=== PATIENT | female | born 1940 | race Caucasian/White ===

== ENCOUNTER 2017-05-07 18:27 | Emergency (ER) | payer OTHER, MEDICAID ==
[~2017-05-07] VITALS: Ht 160 cm; Wt 56.7 kg
[2017-05-07 18:30] VITALS: BP_SYST 187
[2017-05-07] MEDS ORDERED: NACL 0.9% 1,000 ML IV SCH (18:30)
--- NOTE | 2017-05-07 18:37 | NUR ---
Placed in room 04. Placed on court monitor, blood pressure machine and pulse oximeter. To gown for exam. Side rails up.
--- NOTE | 2017-05-07 18:45 | NUR ---
Note dannielle in ED - 05/07/17 at 1857 by SDEDCJM Patient was sent from for hyperglycemia, BS greater than 600 at . Patient reports that she has reversed her DM through and diet and exercise program and no longer has the disease. Per the daughter this belief has lead her to stop all compliance with DM diet and she is eating candy frequently at the commisary. Patient is concerned that she was sent in so that we can amputate her right leg, as she feels that she was not fully involved in the decision to amputate her left leg. Patient has a 0.5cm x 0.5cm abrasion to right heel which is scabbed over with no periwound erythema, and a 1cm x 1cm abrasion to left stump which is scabbed over with no periwound erythema. Patient is pleasantly confused, signing at times, however I am not able to effectively perform education with her.
--- NOTE | 2017-05-07 18:50 | NUR ---
Patient was sent from [facility] for hyperglycemia, BS greater than 600 at [facility]. Patient reports that she has reversed her DM through and diet and exercise program and no longer has the disease. Per the daughter this belief has lead her to stop all compliance with DM diet and she is eating candy frequently at the [facility] commisary. Patient is concerned that she was sent in so that we can amputate her right leg, as she feels that she was not fully involved in the decision to amputate her left leg. Patient has a 0.5cm x 0.5cm abrasion to right heel which is scabbed over with no periwound erythema, and a 1cm x 1cm abrasion to left stump which is scabbed over with no periwound erythema. Patient is pleasantly confused, signing at times, however I am not able to effectively perform education with her.
[2017-05-07 18:54] LABS: MEAN CORPUSCULAR HGB CONC 33 % (32-36); RED BLOOD CELL COUNT(AUTO) 4.46 MIL/uL (4.2-6.2)
[2017-05-07 19:08] LABS: ANION GAP 7 (5-15); BASOPHILS % (AUTO) 0.8 % (0.0-2.0); CALCIUM 9.6 mg/dL (8.4-11.0); CHLORIDE 95 mmol/L (98-107); CREATININE 1.48 mg/dL (0.55-1.30); EOSINOPHILS # (AUTO) 0.1 K/uL (0.0-0.4); EOSINOPHILS % (AUTO) 2.1 % (0.0-4.0); HEMOGLOBIN 13.4 g/dL (12.0-16.0); LYMPHOCYTES # (AUTO) 1.3 K/uL (1.0-5.5); MEAN CORPUSCULAR HEMOGLOBIN 30 pg (27-31); MEAN CORPUSCULAR VOLUME 92 fL (79.0-98.0); MONOCYTES # (AUTO) 0.3 K/uL (0.0-1.0); MONOCYTES % (AUTO) 5.6 % (1.7-9.3); NEUTROPHILS # (AUTO) 3.8 K/uL (1.8-7.7); NEUTROPHILS % (AUTO) 68.5 % (40.0-70.0); PLATELET COUNT (AUTO) 228 K/uL (130-430); POTASSIUM 4.3 mmol/L (3.5-5.1); RED CELL DISTRIBUTION WIDTH 11.9 % (9.0-15.0); SODIUM SERUM 130 mmol/L (136-145); UREA NITROGEN, BLOOD 34 mg/dL (8-21); WHITE BLOOD COUNT (AUTO) 5.4 K/uL (4.8-10.8)
[2017-05-07 19:09] LABS: ALANINE AMINOTRANSFERASE 22 U/L (12-78); ALBUMIN 3.7 g/dL (3.4-4.8); ASPARTATE AMINOTRANSFERASE 12 U/L (10-37); INR 0.9 (0.8-1.2); PROTHROMBIN TIME 9.7 SECS (9.5-12.5); TOTAL BILIRUBIN 0.3 mg/dL (0.0-1.0)
[2017-05-07 19:15] LABS: GLUCOSE 664 mg/dL (70-99)
--- NOTE | 2017-05-07 19:15 | NUR ---
Received report from Krystian RUBIN.
--- NOTE | 2017-05-07 19:17 | NUR ---
Daughter at bedside and working on providing list of medication list for patient.
--- NOTE | 2017-05-07 19:18 | NUR ---
Assisted patient onto bedpan for urine specimen. Patient refused straight cath.
[2017-05-07 19:50] LABS: BILIRUBIN,URINE NEGATIVE (NEGATIVE); BLOOD, URINE 2+ (NEGATIVE); CLARITY/URINE CLOUDY (CLEAR); COLOR,URINE YELLOW (YELLOW); GLUCOSE,URINE 3+ (NEGATIVE); KETONES,URINE NEGATIVE (NEGATIVE); LEUKOCYTE ESTERASE ,URINE TRACE (NEGATIVE); NITRITE, URINE NEGATIVE (NEGATIVE); PH,URINE 5.5 (5.0-8.0); PROTEIN URINE 2+ (NEGATIVE); UROBILINOGEN,URINE 0.2 (0.2-1.0)
[2017-05-07] MEDS ORDERED: NACL 0.9% 1,000 ML IV ONE (19:56)
[2017-05-07] MEDS ORDERED: INSULIN REGULAR, HUMAN 10 UNITS/0.1 ML INJ IVP ONE (20:00)
[2017-05-07 20:23] LABS: BACTERIA,URINE MANY /HPF (None Seen); MUCUS,URINE None Seen /LPF (None Seen); WBC,URINE 50-80 /HPF (0-3); YEAST,URINE Many /HPF (None Seen)
--- NOTE | 2017-05-07 20:30 | NUR ---
No adverse reactions noted after medication administration. Will continue to monitor.
--- NOTE | 2017-05-07 21:00 | NUR ---
BS 281, after 18 units Regular insulin administered. MD Lopez made aware.
[2017-05-07 22:35] VITALS: BP_SYST 138
--- NOTE | 2017-05-07 22:35 | NUR ---
Patient given written and verbal discharge instructions and verbalizes understanding. ER MD discussed with patient the results and treatment provided. Patient in stable condition. ID arm band removed. IV catheter removed intact and dressing applied, no active bleeding. Rx of Levaquin given. Patient educated on pain management and to follow up with PMD. Pain Scale 0/10. Opportunity for questions provided and answered.
== END 2017-05-07 22:35 | disposition home or self-care (01) ==
LOC: SED 18:27
DX: E11.65 Type 2 diabetes mellitus with hyperglycemia (principal); N39.0 Urinary tract infection, site not specified; R79.1 Abnormal coagulation profile; Z89.512 Acquired absence of left leg below knee
CPT/HCPCS: 36415; 36600; 71010; 80053; 81000; 82803; 82962; 83605; 83880; 84484; 85025; 85610; 85730; 87040; 87086; 87186; 93005; 96361; 96374; 99285; J7030; J1815

== ENCOUNTER 2017-05-20 16:18 | Emergency (ER) | payer OTHER, MEDICAID ==
[~2017-05-20] VITALS: Ht 167.6 cm; Wt 54.4 kg
[2017-05-20 16:23] VITALS: BP_SYST 166
[2017-05-20] MEDS ORDERED: NACL 0.9% 1,000 ML IV ONE (17:15)
[2017-05-20 17:35] LABS: BASOPHILS % (AUTO) 0.8 % (0.0-2.0); EOSINOPHILS # (AUTO) 0.1 K/uL (0.0-0.4); EOSINOPHILS % (AUTO) 2.4 % (0.0-4.0); HEMATOCRIT 43.8 % (36-48); LYMPHOCYTES # (AUTO) 1.4 K/uL (1.0-5.5); LYMPHOCYTES % (AUTO) 23.7 % (20.5-51.5); MEAN CORPUSCULAR HEMOGLOBIN 30 pg (27-31); MEAN CORPUSCULAR HGB CONC 32 % (32-36); MEAN CORPUSCULAR VOLUME 92 fL (79.0-98.0); MONOCYTES # (AUTO) 0.4 K/uL (0.0-1.0); MONOCYTES % (AUTO) 6.6 % (1.7-9.3); NEUTROPHILS # (AUTO) 3.9 K/uL (1.8-7.7); NEUTROPHILS % (AUTO) 66.5 % (40.0-70.0); PLATELET COUNT (AUTO) 240 K/uL (130-430); RED BLOOD CELL COUNT(AUTO) 4.74 MIL/uL (4.2-6.2); RED CELL DISTRIBUTION WIDTH 11.9 % (9.0-15.0); WHITE BLOOD COUNT (AUTO) 5.8 K/uL (4.8-10.8)
[2017-05-20 18:01] LABS: ANION GAP 7 (5-15); CALCIUM 9.6 mg/dL (8.4-11.0); CHLORIDE 92 mmol/L (98-107); CREATININE 1.26 mg/dL (0.55-1.30); POTASSIUM 4.1 mmol/L (3.5-5.1); SODIUM SERUM 128 mmol/L (136-145); UREA NITROGEN, BLOOD 32 mg/dL (8-21)
[2017-05-20 18:06] LABS: GLUCOSE 464 mg/dL (70-99)
[2017-05-20] MEDS ORDERED: INSULIN REGULAR, HUMAN 10 UNITS/0.1 ML INJ IVP ONE (18:15)
[2017-05-20 19:23] VITALS: BP_SYST 143
== END 2017-05-20 19:23 | disposition home or self-care (01) ==
LOC: SED 16:18
DX: E11.65 Type 2 diabetes mellitus with hyperglycemia (principal)
CPT/HCPCS: 36415; 80048; 82962; 85025; 96361; 96374; 99284; J1815; J7030

== ENCOUNTER 2019-07-14 11:31 | Inpatient (IN) | payer OTHER, MEDICAID ==
[~2019-07-14] VITALS: Ht 157.5 cm; Wt 54.0 kg
[2019-07-14 11:34] VITALS: BP_SYST 150
[2019-07-14] MEDS ORDERED: NACL 0.9% 1,000 ML IV ONE ×2 (12:15→13:15)
[2019-07-14 12:52] LABS: BASOPHILS % (AUTO) 0.6 % (0.0-2.0); EOSINOPHILS % (AUTO) 0.4 % (0.0-4.0); HEMATOCRIT 35.7 % (36-48); HEMOGLOBIN 12.2 g/dL (12.0-16.0); LYMPHOCYTES % (AUTO) 11.6 % (20.5-51.5); MEAN CORPUSCULAR HEMOGLOBIN 32 pg (27-31); MEAN CORPUSCULAR HGB CONC 34 % (32-36); MEAN CORPUSCULAR VOLUME 94 fL (79.0-98.0); MONOCYTES # (AUTO) 0.5 K/uL (0.0-1.0); MONOCYTES % (AUTO) 6.6 % (1.7-9.3); NEUTROPHILS # (AUTO) 6.7 K/uL (1.8-7.7); NEUTROPHILS % (AUTO) 80.8 % (40.0-70.0); PLATELET COUNT (AUTO) 257 K/uL (130-430); RED BLOOD CELL COUNT(AUTO) 3.79 MIL/uL (4.2-6.2); RED CELL DISTRIBUTION WIDTH 13.4 % (9.0-15.0); WHITE BLOOD COUNT (AUTO) 8.3 K/uL (4.8-10.8)
[2019-07-14 12:54] LABS: ANION GAP 4 (5-15); CALCIUM 8.6 mg/dL (8.4-11.0); CHLORIDE 102 mmol/L (98-107); GLUCOSE 291 mg/dL (70-99); POTASSIUM 3.5 mmol/L (3.5-5.1); SODIUM SERUM 137 mmol/L (136-145); UREA NITROGEN, BLOOD 42 mg/dL (8-21)
[2019-07-14 13:02] LABS: ALANINE AMINOTRANSFERASE 33 U/L (12-78); ALBUMIN 3.3 g/dL (3.4-4.8); ASPARTATE AMINOTRANSFERASE 53 U/L (10-37); TOTAL BILIRUBIN 0.3 mg/dL (0.0-1.0)
[2019-07-14 13:34] LABS: CKMB RELATIVE INDEX 2.1 (0.0-2.9); CREATINE KINASE MB 19.9 ng/mL (0-3.6)
[2019-07-14] MEDS ORDERED: METF-510 PO (14:10)
[2019-07-14] MEDS ORDERED: DEXTROSE 50%-WATER 50 ML DISP.SYRIN IVP PRN (14:30)
[2019-07-14] MEDS ORDERED: D5W 1,000 ML IV PRN (14:30)
[2019-07-14] MEDS ORDERED: GLUCOSE 15 GM GEL (in 37.5 GM TUBE) PO PRN (14:30)
[2019-07-14 15:03] VITALS: BP_SYST 134
[2019-07-14] MEDS: LR 1,000 ML IV SCH (17:00)
[2019-07-14] MEDS ORDERED: PANTOPRAZOLE SODIUM 40 MG TAB PO ONE (19:15)
[2019-07-14] MEDS ORDERED: IPRATROPIUM/ALBUTEROL SULFATE 3 ML AMPUL.NEB (DUONEB) INH PRN (19:15)
[2019-07-14] MEDS ORDERED: ASPIRIN 81 MG TABLET(ECOTRIN) PO ONE (19:15)
[2019-07-14 20:00] VITALS: BP_SYST 107
[2019-07-14 21:08] VITALS: BP_SYST 134
[2019-07-14] MEDS: INSULIN REGULAR, HUMAN 100 UNITS/ML, 10 ML VIAL (humuLIN R) SUBCUT PRN (21:26)
[2019-07-15] MEDS: LR 1,000 ML IV SCH ×2 (00:15→11:33)
[2019-07-15 00:52] VITALS: BP_SYST 158
[2019-07-15] MEDS: cefTRIAXone 1 GM in D5W 50 ML IV SCH ×2 (01:48→22:26)
[2019-07-15 02:03] LABS: BILIRUBIN,URINE NEGATIVE (NEGATIVE); BLOOD, URINE 1+ (NEGATIVE); CLARITY/URINE CLOUDY (CLEAR); COLOR,URINE YELLOW (YELLOW); GLUCOSE,URINE TRACE (NEGATIVE); KETONES,URINE NEGATIVE (NEGATIVE); LEUKOCYTE ESTERASE ,URINE 3+ (NEGATIVE); NITRITE, URINE NEGATIVE (NEGATIVE); PROTEIN URINE TRACE (NEGATIVE); UROBILINOGEN,URINE 0.2 (0.2-1.0)
[2019-07-15 02:11] LABS: BACTERIA,URINE MANY /HPF (None Seen)
[2019-07-15] MEDS: LEVOFLOXACIN 250 MG/D5W 50 ML IV SCH ×2 (02:39→22:21)
[2019-07-15 05:57] LABS: BASOPHILS # (AUTO) 0.1 K/uL (0.0-0.2); BASOPHILS % (AUTO) 0.8 % (0.0-2.0); EOSINOPHILS # (AUTO) 0.3 K/uL (0.0-0.4); EOSINOPHILS % (AUTO) 3.9 % (0.0-4.0); HEMATOCRIT 34.3 % (36-48); HEMOGLOBIN 11.6 g/dL (12.0-16.0); LYMPHOCYTES # (AUTO) 1.4 K/uL (1.0-5.5); LYMPHOCYTES % (AUTO) 19.5 % (20.5-51.5); MEAN CORPUSCULAR HEMOGLOBIN 32 pg (27-31); MEAN CORPUSCULAR HGB CONC 34 % (32-36); MEAN CORPUSCULAR VOLUME 95 fL (79.0-98.0); MONOCYTES # (AUTO) 0.5 K/uL (0.0-1.0); MONOCYTES % (AUTO) 7.1 % (1.7-9.3); NEUTROPHILS # (AUTO) 4.9 K/uL (1.8-7.7); NEUTROPHILS % (AUTO) 68.7 % (40.0-70.0); PLATELET COUNT (AUTO) 240 K/uL (130-430); RED BLOOD CELL COUNT(AUTO) 3.62 MIL/uL (4.2-6.2); RED CELL DISTRIBUTION WIDTH 13.5 % (9.0-15.0); WHITE BLOOD COUNT (AUTO) 7.2 K/uL (4.8-10.8)
[2019-07-15 06:24] LABS: ALANINE AMINOTRANSFERASE 34 U/L (12-78); ALBUMIN 2.7 g/dL (3.4-4.8); ANION GAP 2 (5-15); ASPARTATE AMINOTRANSFERASE 44 U/L (10-37); CALCIUM 8.2 mg/dL (8.4-11.0); CHLORIDE 107 mmol/L (98-107); CREATININE 0.82 mg/dL (0.55-1.30); FREE T4 (FREE THYROXINE) 1.2 ng/dl (0.8-1.5); GLUCOSE 136 mg/dL (70-99); POTASSIUM 3.6 mmol/L (3.5-5.1); SODIUM SERUM 142 mmol/L (136-145); TOTAL BILIRUBIN 0.3 mg/dL (0.0-1.0); UREA NITROGEN, BLOOD 26 mg/dL (8-21)
[2019-07-15 08:00] VITALS: BP_SYST 123; BP_SYST 125
[2019-07-15] MEDS: ASPIRIN 81 MG TABLET(ECOTRIN) PO SCH (08:38)
[2019-07-15] MEDS: PANTOPRAZOLE SODIUM 40 MG TAB PO SCH (08:38)
[2019-07-15] MEDS: INSULIN REGULAR, HUMAN 100 UNITS/ML, 10 ML VIAL (humuLIN R) SUBCUT PRN ×3 (11:38→22:43)
[2019-07-15 12:34] VITALS: BP_SYST 145
[2019-07-15 16:02] VITALS: BP_SYST 134
[2019-07-15 20:00] VITALS: BP_SYST 168
[2019-07-16 00:55] VITALS: BP_SYST 174
[2019-07-16 05:52] LABS: BASOPHILS # (AUTO) 0.1 K/uL (0.0-0.2); BASOPHILS % (AUTO) 0.7 % (0.0-2.0); EOSINOPHILS # (AUTO) 0.2 K/uL (0.0-0.4); EOSINOPHILS % (AUTO) 2.3 % (0.0-4.0); HEMOGLOBIN 12.3 g/dL (12.0-16.0); LYMPHOCYTES # (AUTO) 1.7 K/uL (1.0-5.5); LYMPHOCYTES % (AUTO) 16.2 % (20.5-51.5); MEAN CORPUSCULAR HEMOGLOBIN 32 pg (27-31); MEAN CORPUSCULAR HGB CONC 34 % (32-36); MEAN CORPUSCULAR VOLUME 94 fL (79.0-98.0); MONOCYTES # (AUTO) 0.8 K/uL (0.0-1.0); MONOCYTES % (AUTO) 7.3 % (1.7-9.3); NEUTROPHILS # (AUTO) 7.7 K/uL (1.8-7.7); NEUTROPHILS % (AUTO) 73.5 % (40.0-70.0); PLATELET COUNT (AUTO) 250 K/uL (130-430); RED BLOOD CELL COUNT(AUTO) 3.82 MIL/uL (4.2-6.2); RED CELL DISTRIBUTION WIDTH 13.4 % (9.0-15.0); WHITE BLOOD COUNT (AUTO) 10.4 K/uL (4.8-10.8)
[2019-07-16 06:00] LABS: ANION GAP 6 (5-15); CALCIUM 8.4 mg/dL (8.4-11.0); CHLORIDE 103 mmol/L (98-107); CREATININE 0.85 mg/dL (0.55-1.30); GLUCOSE 166 mg/dL (70-99); POTASSIUM 3.4 mmol/L (3.5-5.1); SODIUM SERUM 139 mmol/L (136-145); UREA NITROGEN, BLOOD 22 mg/dL (8-21)
[2019-07-16] MEDS: INSULIN REGULAR, HUMAN 100 UNITS/ML, 10 ML VIAL (humuLIN R) SUBCUT PRN ×3 (06:57→17:18)
[2019-07-16 08:00] VITALS: BP_SYST 143
[2019-07-16] MEDS: PANTOPRAZOLE SODIUM 40 MG TAB PO SCH (08:08)
[2019-07-16] MEDS: ASPIRIN 81 MG TABLET(ECOTRIN) PO SCH (08:08)
[2019-07-16] MEDS: LR 1,000 ML IV SCH ×2 (08:09→17:18)
[2019-07-16] MEDS ORDERED: POTASSIUM CHLORIDE 20 MEQ TAB.PRT.SR PO ONE (10:45)
[2019-07-16] MEDS ORDERED: POLYETHYLENE GLYCOL 3350, 17 GM/ POWD.PACK PO ONE (11:15)
[2019-07-16] MEDS ORDERED: DOCUSATE SODIUM 100 MG CAPSULE PO ONE (11:15)
[2019-07-16 12:44] VITALS: BP_SYST 150
[2019-07-16] MEDS ORDERED: ACETAMINOPHEN 325 MG TABLET PO PRN (13:15)
[2019-07-16 16:04] VITALS: BP_SYST 147
[2019-07-16 20:00] VITALS: BP_SYST 101
[2019-07-16] MEDS: LEVOFLOXACIN 250 MG/D5W 50 ML IV SCH (20:00)
[2019-07-16] MEDS: cefTRIAXone 1 GM in D5W 50 ML IV SCH (21:00)
[2019-07-16] MEDS ORDERED: LEVOFLOXACIN 250 MG/D5W 50 ML IV ONE (23:46)
[2019-07-17] VITALS (8 sets, daily range): BP systolic 136–161
[2019-07-17] MEDS: LR 1,000 ML IV SCH ×2 (02:15→08:42)
[2019-07-17] MEDS: INSULIN REGULAR, HUMAN 100 UNITS/ML, 10 ML VIAL (humuLIN R) SUBCUT PRN ×3 (06:18→16:45)
[2019-07-17 06:32] LABS: CHOLESTEROL 216 mg/dL (<200); HDL CHOLESTEROL 60 mg/dL (>55); LDL CHOLESTEROL 133 mg/dL (<100); TRIGLYCERIDES 94 mg/dL (30-150)
[2019-07-17] MEDS: PANTOPRAZOLE SODIUM 40 MG TAB PO SCH (08:43)
[2019-07-17] MEDS: ASPIRIN 81 MG TABLET(ECOTRIN) PO SCH (08:43)
[2019-07-17] MEDS ORDERED: ATORVASTATIN 10 MG TABLET PO SCH (09:00)
[2019-07-17] MEDS ORDERED: metFORMIN HCL 500 MG TABLET PO ONE (10:45)
[2019-07-17] MEDS ORDERED: LIP10 PO (13:48)
[2019-07-17] MEDS ORDERED: ASPI-1153 PO (13:48)
[2019-07-17] MEDS ORDERED: SSREG SUBCUT (13:48)
[2019-07-17] MEDS ORDERED: BLOO-360 XX (13:48)
[2019-07-17] MEDS ORDERED: PRO40 PO (13:48)
[2019-07-17] MEDS ORDERED: CEPH250C PO (13:54)
[2019-07-17] MEDS ORDERED: metFORMIN HCL 500 MG TABLET PO SCH (18:00)
[2019-07-18] MEDS ORDERED: ATORVASTATIN 10 MG TABLET PO SCH (09:00)
== END 2019-07-17 19:45 | DRG 64 ==
LOC: SED 11:31 → SMU 14:50
PROVIDERS: ADMIT Internal Medicine; ATTEND Internal Medicine
DX: I63.9 Cerebral infarction, unspecified (principal); G93.41 Metabolic encephalopathy; J18.9 Pneumonia, unspecified organism; E44.1 Mild protein-calorie malnutrition; N39.0 Urinary tract infection, site not specified; E11.65 Type 2 diabetes mellitus with hyperglycemia; E86.0 Dehydration; I25.10 Atherosclerotic heart disease of native coronary artery without angina pectoris; F31.9 Bipolar disorder, unspecified; E11.51 Type 2 diabetes mellitus with diabetic peripheral angiopathy without gangrene; E11.40 Type 2 diabetes mellitus with diabetic neuropathy, unspecified; Z68.21 Body mass index [BMI] 21.0-21.9, adult; Z79.899 Other long term (current) drug therapy; Z79.84 Long term (current) use of oral hypoglycemic drugs; Z89.512 Acquired absence of left leg below knee; Z91.11 Patient's noncompliance with dietary regimen; Z91.14 Patient's other noncompliance with medication regimen; Z95.5 Presence of coronary angioplasty implant and graft; I25.2 Old myocardial infarction; Z86.73 Personal history of transient ischemic attack (TIA), and cerebral infarction without residual deficits; Z79.4 Long term (current) use of insulin
CPT/HCPCS: 36415; 70551; 71045; 80048; 80053; 80061; 81000-TC; 82550-TC; 82553-TC; 82962; 83036; 83880; 84439; 84484; 85025; 87081; 87086; 87186-TC; 93005; 93306; 93880; 96360; 97110-GP; 97530-GP; 99285; J0696; J1815; J1956; J7030; J7060; J7120

== ENCOUNTER 2019-12-23 12:01 | Inpatient (IN) | payer OTHER, MEDICAID ==
[~2019-12-23] VITALS: Ht 167.6 cm; Wt 54.0 kg
[~2019-12-23 12:01] MED LIST: ASPI-1153 PO; BLOO-360 XX; CEPH250C PO; LIP10 PO; METF-510 PO; PRO40 PO; SSREG SUBCUT
[2019-12-23 12:20] VITALS: BP_SYST 134
[2019-12-23 13:31] LABS: BASOPHILS # (AUTO) 0.1 K/uL (0.0-0.2); BASOPHILS % (AUTO) 0.8 % (0.0-2.0); EOSINOPHILS # (AUTO) 0.1 K/uL (0.0-0.4); EOSINOPHILS % (AUTO) 1.7 % (0.0-4.0); HEMATOCRIT 34.5 % (36-48); HEMOGLOBIN 11.1 g/dL (12.0-16.0); LYMPHOCYTES # (AUTO) 0.8 K/uL (1.0-5.5); LYMPHOCYTES % (AUTO) 11.1 % (20.5-51.5); MEAN CORPUSCULAR HEMOGLOBIN 31 pg (27-31); MEAN CORPUSCULAR HGB CONC 32 % (32-36); MEAN CORPUSCULAR VOLUME 95 fL (79.0-98.0); MONOCYTES # (AUTO) 0.4 K/uL (0.0-1.0); MONOCYTES % (AUTO) 5.3 % (1.7-9.3); NEUTROPHILS # (AUTO) 5.9 K/uL (1.8-7.7); NEUTROPHILS % (AUTO) 81.1 % (40.0-70.0); PLATELET COUNT (AUTO) 218 K/uL (130-430); RED BLOOD CELL COUNT(AUTO) 3.62 MIL/uL (4.2-6.2); RED CELL DISTRIBUTION WIDTH 14.2 % (9.0-15.0); WHITE BLOOD COUNT (AUTO) 7.2 K/uL (4.8-10.8)
[2019-12-23 13:51] LABS: ANION GAP 6 (5-15); CHLORIDE 105 mmol/L (98-107); GLUCOSE 101 mg/dL (70-99); POTASSIUM 4.3 mmol/L (3.5-5.1); SODIUM SERUM 140 mmol/L (136-145)
[2019-12-23 13:52] LABS: ASPARTATE AMINOTRANSFERASE 18 U/L (10-37); CALCIUM 8.8 mg/dL (8.4-11.0); CREATININE 1.33 mg/dL (0.55-1.30); TOTAL BILIRUBIN 0.5 mg/dL (0.0-1.0); UREA NITROGEN, BLOOD 51 mg/dL (8-21)
[2019-12-23 13:54] LABS: ALANINE AMINOTRANSFERASE 24 U/L (12-78); ALBUMIN 3.6 g/dL (3.4-4.8)
[2019-12-23] MEDS ORDERED: ASPIRIN 325 MG TABLET (ECOTRIN) PO ONE (14:45)
[2019-12-23 15:30] LABS: BILIRUBIN,URINE NEGATIVE (NEGATIVE); BLOOD, URINE 2+ (NEGATIVE); CLARITY/URINE CLOUDY (CLEAR); COLOR,URINE YELLOW (YELLOW); GLUCOSE,URINE NEGATIVE (NEGATIVE); KETONES,URINE NEGATIVE (NEGATIVE); LEUKOCYTE ESTERASE ,URINE 3+ (NEGATIVE); NITRITE, URINE NEGATIVE (NEGATIVE); PROTEIN URINE 2+ (NEGATIVE); UROBILINOGEN,URINE 0.2 (0.2-1.0)
[2019-12-23] MEDS ORDERED: cefTRIAXone 1 GM IVPB PREMIX 50 ML IV ONE (15:45)
[2019-12-23 15:56] LABS: WBC,URINE >100 /HPF (0-3)
[2019-12-23 15:57] LABS: BACTERIA,URINE MANY /HPF (None Seen)
[2019-12-23 15:58] LABS: MUCUS,URINE None Seen /LPF (None Seen); URINE AMORPHOUS URATE 3+ /HPF (None Seen)
[2019-12-23 16:10] VITALS: BP_SYST 148
[2019-12-23] MEDS ORDERED: D5W 1,000 ML IV PRN (18:15)
[2019-12-23] MEDS ORDERED: DEXTROSE 50%-WATER 50 ML DISP.SYRIN IVP PRN (18:15)
[2019-12-23] MEDS ORDERED: GLUCOSE 15 GM GEL (in 37.5 GM TUBE) PO PRN (18:15)
[2019-12-23] MEDS ORDERED: PANTOPRAZOLE SODIUM 40 MG TAB PO ONE (18:30)
[2019-12-23] MEDS ORDERED: ATORVASTATIN 10 MG TABLET PO ONE (18:30)
[2019-12-23] MEDS: NACL 0.9% 1,000 ML IV SCH (18:59)
[2019-12-23] MEDS ORDERED: GLIP2.5T3 PO (19:34)
[2019-12-23 20:00] VITALS: BP_SYST 136
[2019-12-23] MEDS: INSULIN LISPRO SLIDING SCALE 100 UNITS/ML VIAL (humaLOG) SUBCUT PRN (20:10)
[2019-12-24 00:32] VITALS: BP_SYST 156
[2019-12-24] MEDS: NACL 0.9% 1,000 ML IV SCH ×2 (06:11→20:13)
[2019-12-24 06:31] LABS: BASOPHILS # (AUTO) 0.1 K/uL (0.0-0.2); BASOPHILS % (AUTO) 0.8 % (0.0-2.0); EOSINOPHILS # (AUTO) 0.2 K/uL (0.0-0.4); EOSINOPHILS % (AUTO) 3.3 % (0.0-4.0); HEMATOCRIT 30.5 % (36-48); HEMOGLOBIN 10.1 g/dL (12.0-16.0); LYMPHOCYTES # (AUTO) 1.2 K/uL (1.0-5.5); LYMPHOCYTES % (AUTO) 19.5 % (20.5-51.5); MEAN CORPUSCULAR HEMOGLOBIN 31 pg (27-31); MEAN CORPUSCULAR HGB CONC 33 % (32-36); MEAN CORPUSCULAR VOLUME 95 fL (79.0-98.0); MONOCYTES # (AUTO) 0.4 K/uL (0.0-1.0); MONOCYTES % (AUTO) 6.2 % (1.7-9.3); NEUTROPHILS # (AUTO) 4.4 K/uL (1.8-7.7); NEUTROPHILS % (AUTO) 70.2 % (40.0-70.0); PLATELET COUNT (AUTO) 191 K/uL (130-430); RED BLOOD CELL COUNT(AUTO) 3.22 MIL/uL (4.2-6.2); RED CELL DISTRIBUTION WIDTH 14.4 % (9.0-15.0); WHITE BLOOD COUNT (AUTO) 6.2 K/uL (4.8-10.8)
[2019-12-24 06:35] LABS: ALANINE AMINOTRANSFERASE 23 U/L (12-78); ANION GAP 5 (5-15); ASPARTATE AMINOTRANSFERASE 18 U/L (10-37); CALCIUM 8.1 mg/dL (8.4-11.0); CHLORIDE 108 mmol/L (98-107); CREATININE 1.12 mg/dL (0.55-1.30); GLUCOSE 113 mg/dL (70-99); SODIUM SERUM 144 mmol/L (136-145); THYROID STIMULATING HORMONE 0.83 uIu/mL (0.36-3.74); TOTAL BILIRUBIN 0.4 mg/dL (0.0-1.0); UREA NITROGEN, BLOOD 39 mg/dL (8-21)
[2019-12-24 07:19] LABS: CHOLESTEROL 164 mg/dL (<200); HDL CHOLESTEROL 47 mg/dL (>55); LDL CHOLESTEROL 91 mg/dL (<100); TRIGLYCERIDES 131 mg/dL (30-150)
[2019-12-24] MEDS: ASPIRIN 81 MG TABLET(ECOTRIN) PO SCH (08:45)
[2019-12-24] MEDS: ATORVASTATIN 10 MG TABLET PO SCH (08:46)
[2019-12-24] MEDS: PANTOPRAZOLE SODIUM 40 MG TAB PO SCH (08:46)
[2019-12-24 09:00] VITALS: BP_SYST 141
[2019-12-24] MEDS: INSULIN LISPRO SLIDING SCALE 100 UNITS/ML VIAL (humaLOG) SUBCUT PRN ×2 (11:06→20:11)
[2019-12-24 12:52] VITALS: BP_SYST 128
[2019-12-24 16:48] VITALS: BP_SYST 158
[2019-12-24 19:45] VITALS: BP_SYST 112
[2019-12-25 00:47] VITALS: BP_SYST 137
[2019-12-25] MEDS ORDERED: LEVOFLOXACIN 500 MG/D5W 100 ML IV ONE (07:00)
[2019-12-25 07:57] VITALS: BP_SYST 121
[2019-12-25] MEDS ORDERED: VANCOMYCIN HCL 1 GM/NS PREMIX 250 ML IV ONE (08:00)
[2019-12-25] MEDS: ATORVASTATIN 10 MG TABLET PO SCH (08:32)
[2019-12-25] MEDS: PANTOPRAZOLE SODIUM 40 MG TAB PO SCH (08:32)
[2019-12-25] MEDS: ASPIRIN 81 MG TABLET(ECOTRIN) PO SCH (08:32)
[2019-12-25 12:29] VITALS: BP_SYST 132
[2019-12-25] MEDS: NACL 0.9% 1,000 ML IV SCH ×2 (13:08→20:47)
[2019-12-25 16:20] VITALS: BP_SYST 126
[2019-12-25] MEDS: ERTAPENEM SODIUM 1 GM in NS 50 ML IV SCH (17:03)
[2019-12-25 19:50] VITALS: BP_SYST 142
[2019-12-26 00:23] VITALS: BP_SYST 151
[2019-12-26] MEDS: INSULIN LISPRO SLIDING SCALE 100 UNITS/ML VIAL (humaLOG) SUBCUT PRN ×3 (03:36→20:42)
[2019-12-26 06:14] LABS: BASOPHILS % (AUTO) 0.8 % (0.0-2.0); EOSINOPHILS # (AUTO) 0.2 K/uL (0.0-0.4); EOSINOPHILS % (AUTO) 4.1 % (0.0-4.0); HEMATOCRIT 33.5 % (36-48); LYMPHOCYTES # (AUTO) 1.3 K/uL (1.0-5.5); LYMPHOCYTES % (AUTO) 21.5 % (20.5-51.5); MEAN CORPUSCULAR HEMOGLOBIN 31 pg (27-31); MEAN CORPUSCULAR HGB CONC 33 % (32-36); MEAN CORPUSCULAR VOLUME 95 fL (79.0-98.0); MONOCYTES # (AUTO) 0.4 K/uL (0.0-1.0); MONOCYTES % (AUTO) 7.2 % (1.7-9.3); NEUTROPHILS # (AUTO) 3.9 K/uL (1.8-7.7); NEUTROPHILS % (AUTO) 66.4 % (40.0-70.0); PLATELET COUNT (AUTO) 196 K/uL (130-430); RED BLOOD CELL COUNT(AUTO) 3.54 MIL/uL (4.2-6.2); RED CELL DISTRIBUTION WIDTH 13.9 % (9.0-15.0); WHITE BLOOD COUNT (AUTO) 5.8 K/uL (4.8-10.8)
[2019-12-26 06:23] LABS: ANION GAP 3 (5-15); CALCIUM 8.3 mg/dL (8.4-11.0); CHLORIDE 107 mmol/L (98-107); CREATININE 1.02 mg/dL (0.55-1.30); GLUCOSE 158 mg/dL (70-99); POTASSIUM 3.8 mmol/L (3.5-5.1); SODIUM SERUM 142 mmol/L (136-145); UREA NITROGEN, BLOOD 20 mg/dL (8-21)
[2019-12-26 08:15] VITALS: BP_SYST 139; BP_SYST 183
[2019-12-26] MEDS: ASPIRIN 81 MG TABLET(ECOTRIN) PO SCH (09:45)
[2019-12-26] MEDS: ATORVASTATIN 10 MG TABLET PO SCH (09:45)
[2019-12-26] MEDS: PANTOPRAZOLE SODIUM 40 MG TAB PO SCH (09:45)
[2019-12-26] MEDS: VANCOMYCIN HCL 750 MG in NS 250 ML IV SCH ×2 (09:47→10:13)
[2019-12-26 12:00] VITALS: BP_SYST 150
[2019-12-26] MEDS: NACL 0.9% 1,000 ML IV SCH (12:08)
[2019-12-26 16:36] VITALS: BP_SYST 163
[2019-12-26] MEDS: ERTAPENEM SODIUM 1 GM in NS 50 ML IV SCH (17:13)
[2019-12-26 20:00] VITALS: BP_SYST 135
[2019-12-27 00:12] VITALS: BP_SYST 154
[2019-12-27 07:52] VITALS: BP_SYST 137
[2019-12-27] MEDS ORDERED: DOCUSATE SODIUM 250 MG CAPSULE PO PRN (09:00)
[2019-12-27] MEDS: ATORVASTATIN 10 MG TABLET PO SCH (09:21)
[2019-12-27] MEDS: PANTOPRAZOLE SODIUM 40 MG TAB PO SCH (09:21)
[2019-12-27] MEDS: ASPIRIN 81 MG TABLET(ECOTRIN) PO SCH (09:21)
[2019-12-27] MEDS: VANCOMYCIN HCL 1,250 MG in NS 250 ML IV SCH (11:10)
[2019-12-27] MEDS: NACL 0.9% 1,000 ML IV SCH (11:11)
[2019-12-27] MEDS ORDERED: MILK OF MAGNESIA 30 ML UDC PO PRN (11:15)
[2019-12-27 12:00] VITALS: BP_SYST 128
[2019-12-27] MEDS: INSULIN LISPRO SLIDING SCALE 100 UNITS/ML VIAL (humaLOG) SUBCUT PRN ×2 (12:11→21:06)
[2019-12-27] MEDS: ERTAPENEM SODIUM 1 GM in NS 50 ML IV SCH (16:17)
[2019-12-27 16:57] VITALS: BP_SYST 137
[2019-12-27 20:00] VITALS: BP_SYST 140
[2019-12-27] MEDS: DOCUSATE SODIUM 250 MG CAPSULE PO SCH (21:02)
[2019-12-28 00:25] VITALS: BP_SYST 106
[2019-12-28 07:52] VITALS: BP_SYST 148
[2019-12-28] MEDS: DOCUSATE SODIUM 250 MG CAPSULE PO SCH ×2 (08:21→21:20)
[2019-12-28] MEDS: PANTOPRAZOLE SODIUM 40 MG TAB PO SCH (08:21)
[2019-12-28] MEDS: ATORVASTATIN 10 MG TABLET PO SCH (08:21)
[2019-12-28] MEDS: ASPIRIN 81 MG TABLET(ECOTRIN) PO SCH (08:21)
[2019-12-28] MEDS: VANCOMYCIN HCL 1,250 MG in NS 250 ML IV SCH (09:36)
[2019-12-28] MEDS: INSULIN LISPRO SLIDING SCALE 100 UNITS/ML VIAL (humaLOG) SUBCUT PRN ×3 (11:45→21:24)
[2019-12-28 12:23] VITALS: BP_SYST 159
[2019-12-28] MEDS: ERTAPENEM SODIUM 1 GM in NS 50 ML IV SCH (15:56)
[2019-12-28 16:17] VITALS: BP_SYST 151
[2019-12-28 20:00] VITALS: BP_SYST 130
[2019-12-28] MEDS: NACL 0.9% 1,000 ML IV SCH (21:20)
[2019-12-28 23:52] VITALS: BP_SYST 123
[2019-12-29 08:00] VITALS: BP_SYST 148
[2019-12-29] MEDS: PANTOPRAZOLE SODIUM 40 MG TAB PO SCH (08:27)
[2019-12-29] MEDS: ASPIRIN 81 MG TABLET(ECOTRIN) PO SCH (08:28)
[2019-12-29] MEDS: ATORVASTATIN 10 MG TABLET PO SCH (08:28)
[2019-12-29] MEDS: DOCUSATE SODIUM 250 MG CAPSULE PO SCH (08:30)
[2019-12-29] MEDS: INSULIN LISPRO SLIDING SCALE 100 UNITS/ML VIAL (humaLOG) SUBCUT PRN (12:10)
[2019-12-29 12:18] VITALS: BP_SYST 137
[2019-12-29 15:46] VITALS: BP_SYST 149
[2019-12-29] MEDS: ERTAPENEM SODIUM 1 GM in NS 50 ML IV SCH (16:14)
[2019-12-29 16:19] VITALS: BP_SYST 149
[2019-12-29] MEDS ORDERED: ALPRAZolam 0.25 MG TABLET PO ONE (17:30)
[2019-12-29] MEDS ORDERED: cloNIDine HCL 0.1 MG TABLET PO ONE (17:30)
== END 2019-12-29 17:35 | DRG 871 ==
LOC: SED 13:23 → STU 15:00
PROVIDERS: ADMIT Internal Medicine; ATTEND Internal Medicine
DX: A41.1 Sepsis due to other specified staphylococcus (principal); N17.0 Acute kidney failure with tubular necrosis; N39.0 Urinary tract infection, site not specified; Z16.24 Resistance to multiple antibiotics; E11.40 Type 2 diabetes mellitus with diabetic neuropathy, unspecified; S80.212A Abrasion, left knee, initial encounter; S09.90XA Unspecified injury of head, initial encounter; E86.0 Dehydration; E11.22 Type 2 diabetes mellitus with diabetic chronic kidney disease; B96.20 Unspecified Escherichia coli [E. coli] as the cause of diseases classified elsewhere; J45.909 Unspecified asthma, uncomplicated; N18.2 Chronic kidney disease, stage 2 (mild); E11.65 Type 2 diabetes mellitus with hyperglycemia; I13.10 Hypertensive heart and chronic kidney disease without heart failure, with stage 1 through stage 4 chronic kidney disease, or unspecified chronic kidney disease; I34.0 Nonrheumatic mitral (valve) insufficiency; I25.10 Atherosclerotic heart disease of native coronary artery without angina pectoris; F31.9 Bipolar disorder, unspecified; E11.51 Type 2 diabetes mellitus with diabetic peripheral angiopathy without gangrene; W05.0XXA Fall from non-moving wheelchair, initial encounter; Y93.89 Activity, other specified; Y92.89 Other specified places as the place of occurrence of the external cause; Y99.8 Other external cause status; Z79.82 Long term (current) use of aspirin; Z79.899 Other long term (current) drug therapy; Z89.512 Acquired absence of left leg below knee; I25.2 Old myocardial infarction; Z95.5 Presence of coronary angioplasty implant and graft; Z86.73 Personal history of transient ischemic attack (TIA), and cerebral infarction without residual deficits
CPT/HCPCS: 36415; 70450-TC; 71045; 73564; 80048; 80053; 80061; 80202-TC; 81000-TC; 82962; 83880; 84443-TC; 84484; 85025; 87040-TC; 87086; 87186-TC; 93005; 93306; 96365; 99285; G0378; J0696; J1335; J1956; J3370; J7030; J7050

== ENCOUNTER 2021-09-17 17:06 | Emergency (ER) | payer OTHER, MEDICAID, SELFPAY ==
[~2021-09-17 17:06] MED LIST changes: -ASPI-1153 PO; +ASPI-1393 PO; +GLIP2.5T3 PO; -METF-510 PO; +METF-518 PO
[2021-09-17 19:35] LABS: BASOPHILS % (AUTO) 0.9 % (0.0-2.0); EOSINOPHILS # (AUTO) 0.2 K/uL (0.0-0.4); EOSINOPHILS % (AUTO) 3.1 % (0.0-4.0); HEMATOCRIT 38.5 % (36-48); HEMOGLOBIN 12.9 g/dL (12.0-16.0); LYMPHOCYTES # (AUTO) 1.4 K/uL (1.0-5.5); LYMPHOCYTES % (AUTO) 24.7 % (20.5-51.5); MEAN CORPUSCULAR HEMOGLOBIN 31 pg (27-31); MEAN CORPUSCULAR HGB CONC 33 % (32-36); MEAN CORPUSCULAR VOLUME 93 fL (79.0-98.0); MONOCYTES # (AUTO) 0.3 K/uL (0.0-1.0); MONOCYTES % (AUTO) 6.3 % (1.7-9.3); NEUTROPHILS # (AUTO) 3.6 K/uL (1.8-7.7); PLATELET COUNT (AUTO) 194 K/uL (130-430); RED BLOOD CELL COUNT(AUTO) 4.14 MIL/uL (4.2-6.2); RED CELL DISTRIBUTION WIDTH 13.2 % (9.0-15.0); WHITE BLOOD COUNT (AUTO) 5.6 K/uL (4.8-10.8)
[2021-09-17 19:55] LABS: ANION GAP 8 (5-15); CALCIUM 8.9 mg/dL (8.4-11.0); CHLORIDE 104 mmol/L (98-107); CREATININE 1.16 mg/dL (0.55-1.30); GLUCOSE 127 mg/dL (70-99); POTASSIUM 4.7 mmol/L (3.5-5.1); SODIUM SERUM 141 mmol/L (136-145); UREA NITROGEN, BLOOD 33 mg/dL (8-21)
[2021-09-17 20:00] LABS: ALANINE AMINOTRANSFERASE 29 U/L (12-78); ALBUMIN 3.7 g/dL (3.4-4.8); ASPARTATE AMINOTRANSFERASE 21 U/L (10-37); TOTAL BILIRUBIN 0.4 mg/dL (0.0-1.0)
[2021-09-17 20:02] LABS: C-REACTIVE PROTEIN QUANT < 0.2 mg/dL (0-0.5)
[2021-09-17] MEDS ORDERED: LIDOCAINE 1%, 20 ML MDV 20 ML ONE (20:51)
[2021-09-17] MEDS ORDERED: LIDOCAINE 1% 10 MG/ML, 20 ML MDV INJ ONE (21:00)
[2021-09-17] MEDS ORDERED: DIPH-TET-PERTUS Vaccine 0.5 ML VIAL (ADACEL) I.M. ONE (21:00)
[2021-09-17] MEDS ORDERED: BACITRACIN 1 GM OINT TP ONE (21:00)
--- NOTE | 2021-09-17 21:10 | NUR ---
Assigned to discharge patient.
[2021-09-17] MEDS ORDERED: IBUPROFEN 600 MG TABLET PO ONE (21:15)
[2021-09-17] MEDS ORDERED: HYDROcodone/ACETAMIN 5-325 MG TAB (NORCO/ VICODIN) PO ONE (21:15)
[2021-09-17 21:25] VITALS: BP_SYST 146
--- NOTE | 2021-09-17 21:25 | NUR ---
Patient given written and verbal discharge instructions given by Antonio RUBIN and verbalizes understanding. ER discussed with patient the results and treatment provided. Patient in stable condition. ID arm band removed. No Rx given. Patient educated on pain management and to follow up with PMD. Pain Scale 0/10. Opportunity for questions provided and answered.
--- NOTE | 2021-09-17 21:25 | NUR ---
Pt discharged. D/c teaching provided to daughter as well as patient. ER provider also provided d/c instructions as well. Pt given prescriptions and teaching done. Pt and daughter stated understanding d/c instructions and prescriptions.
== END 2021-09-17 21:25 | disposition home or self-care (01) ==
LOC: SED 17:06
DX: L60.0 Ingrowing nail (principal); L03.031 Cellulitis of right toe; E11.9 Type 2 diabetes mellitus without complications; Z79.84 Long term (current) use of oral hypoglycemic drugs; Z79.899 Other long term (current) drug therapy
CPT/HCPCS: 11730; 36415; 73660; 80053; 83605; 85025; 86140; 99284; J2001; 90715

== ENCOUNTER 2022-04-28 17:49 | Inpatient (IN) | payer OTHER, MEDICAID ==
[~2022-04-28] VITALS: Ht 170.2 cm; Wt 53.5 kg
[2022-04-28 17:55] VITALS: BP_SYST 104
--- NOTE | 2022-04-28 17:55 | NUR ---
Placed in room 5 . Placed on security monitor, blood pressure machine and pulse oximeter. To gown for exam. Side rails up. Report given to CARYN COLLADO.
--- NOTE | 2022-04-28 18:34 | NUR ---
ER Dr. Brody at bedside examining patient.
--- NOTE | 2022-04-28 18:45 | NUR ---
Pt was FERMIN GATES from [facility] c/o fatigue, weakness and loss of appetite x 36 hours. Pt has a hx of DM Type II, GERD, Hyperlip and Glaucoma. Pt is A&Ox3 to name, year, situation. Pt appears in no acute distress and is resting comfortably on gurney at this time. Will continue to monitor and provide care as ordered.
--- NOTE | 2022-04-28 19:15 | NUR ---
ASSUME CARE OF PT BY YRLAN RUBIN, REPORT GIVEN BY KACEY RUBIN, PT BIBA FOR VOMITING X FEW DAYS AND NOT EATING FOR 1 DAY, PT WAS LETHARGIC. HX- DM, GERD, AL WITH STENT. DAUGHTER AT BEDSIDE. PT FROM [facility]. PT ON MONOGRAM TECHNICIAN. PT A/OX 3. DAUGHTER STATES SHE IS MORE CONFUSED THAN USUAL.
[2022-04-28] MEDS ORDERED: NACL 0.9% 1,000 ML IV ONE (19:45)
[2022-04-28 19:52] LABS: BASOPHILS % (AUTO) 0.1 % (0.0-2.0); HEMOGLOBIN 13.8 g/dL (12.0-16.0); LYMPHOCYTES # (AUTO) 0.6 K/uL (1.0-5.5); LYMPHOCYTES % (AUTO) 3.1 % (20.5-51.5); MEAN CORPUSCULAR HEMOGLOBIN 30 pg (27-31); MEAN CORPUSCULAR HGB CONC 32 % (32-36); MEAN CORPUSCULAR VOLUME 94 fL (79.0-98.0); MONOCYTES # (AUTO) 0.5 K/uL (0.0-1.0); MONOCYTES % (AUTO) 2.6 % (1.7-9.3); NEUTROPHILS # (AUTO) 16.8 K/uL (1.8-7.7); NEUTROPHILS % (AUTO) 94.2 % (40.0-70.0); PLATELET COUNT (AUTO) 271 K/uL (130-430); RED BLOOD CELL COUNT(AUTO) 4.56 MIL/uL (4.2-6.2); RED CELL DISTRIBUTION WIDTH 13.7 % (9.0-15.0); WHITE BLOOD COUNT (AUTO) 17.8 K/uL (4.8-10.8)
[2022-04-28 19:58] LABS: ACETONE, SERUM NEGATIVE (NEGATIVE)
[2022-04-28 20:04] LABS: ANION GAP 12 (5-15); CALCIUM 9.6 mg/dL (8.4-11.0); CHLORIDE 118 mmol/L (98-107); CREATININE 2.92 mg/dL (0.55-1.30); GLUCOSE 341 mg/dL (70-99); SODIUM SERUM 158 mmol/L (136-145)
[2022-04-28 20:11] LABS: UREA NITROGEN, BLOOD 130 mg/dL (8-21)
[2022-04-28 20:16] LABS: ALANINE AMINOTRANSFERASE 17 U/L (12-78); ALBUMIN 2.7 g/dL (3.4-4.8); ASPARTATE AMINOTRANSFERASE 20 U/L (10-37); TOTAL BILIRUBIN 0.5 mg/dL (0.0-1.0)
--- NOTE | 2022-04-28 20:47 | NUR ---
PATIENT STRAIGHT CATHED TO OBTAIN URINE SAMPLE, TOLERATED WELL.
[2022-04-28 20:55] LABS: BILIRUBIN,URINE NEGATIVE (NEGATIVE); BLOOD, URINE 2+ (NEGATIVE); COLOR,URINE YELLOW (YELLOW); GLUCOSE,URINE NEGATIVE (NEGATIVE); KETONES,URINE NEGATIVE (NEGATIVE); LEUKOCYTE ESTERASE ,URINE 1+ (NEGATIVE); NITRITE, URINE NEGATIVE (NEGATIVE); PH,URINE 5.5 (5.0-8.0); PROTEIN URINE 2+ (NEGATIVE); UROBILINOGEN,URINE 0.2 (0.2-1.0)
[2022-04-28 21:02] LABS: CLARITY/URINE HAZY (CLEAR)
[2022-04-28 21:04] LABS: BACTERIA,URINE MANY /HPF (None Seen); MUCUS,URINE None Seen /LPF (None Seen); RBC,URINE 0-3 /HPF (0-3)
[2022-04-28] MEDS ORDERED: cefTRIAXone 1 GM in D5W 50 ML IV ONE (21:30)
[2022-04-28] MEDS ORDERED: NACL 0.9% 2,000 ML IV ONE (21:30)
[2022-04-28] MEDS ORDERED: NACL 0.9% 1,000 ML IV SCH ×2 (21:45→22:15)
--- NOTE | 2022-04-28 21:49 | NUR ---
COVID SWAB SENT TO LAB.
--- NOTE | 2022-04-28 21:50 | NUR ---
Admit bed requested Patient will be admitted to care of [ESTELITA]. Admitted to [TELE] unit. Diagnosis [SEVERE DEHYDRATION, RENAL FAILURE, UTI] Inpatient (Yes or No) [YES] Observation (Yes or No) [NO] Orientation concerns or request close to nursing station (Yes or No) [NO] Covid Status [PEND] On vent or bipap [NO] Isolation requirements [NO] Needs a sitter [NO] From Home (Yes or if No enter name of facility) [[facility]] Requires Dialysis (Yes or No) [NO] Med Rec Completed (Yes of No) [NO]
[2022-04-28] MEDS ORDERED: cefTRIAXone 1 GM VIAL ONE (21:53)
--- NOTE | 2022-04-28 22:00 | NUR ---
pt placed in a gown, linen and diaper changed, applied new linen and pads. pt waiting for admited bed.
[2022-04-28] MEDS ORDERED: DOCUSATE SODIUM 100 MG/10 ML UDC PO PRN (22:15)
[2022-04-28] MEDS ORDERED: DEXTROSE 50% JECT 50 ML DISP.SYRIN IVP PRN (22:15)
[2022-04-28] MEDS ORDERED: HYDROcodone/ACETAMIN 7.5-325 MG TAB PO PRN (22:15)
[2022-04-28] MEDS ORDERED: ACETAMINOPHEN 500 MG TABLET PO PRN (22:15)
[2022-04-28] MEDS ORDERED: ZOLPIDEM TARTRATE 5 MG TABLET PO PRN (22:15)
[2022-04-28] MEDS ORDERED: D5W 1,000 ML IV PRN (22:15)
[2022-04-28] MEDS ORDERED: GLUCOSE (DEXTROSE) ORAL GEL -Adults PO PRN (22:15)
[2022-04-28] MEDS ORDERED: ONDANSETRON HCL 4 MG/2 ML VIAL IVP PRN (22:15)
[2022-04-28] MEDS ORDERED: guaiFENesin/DEXTROMETHORPHAN 10 ML UDC PO PRN (22:15)
[2022-04-28 22:54] LABS: INR 1.1 (0.8-1.2); PROTHROMBIN TIME 10.9 SECS (9.5-12.5)
[2022-04-28 23:51] LABS: PHOSPHORUS 6.2 mg/dL (2.7-4.5)
[2022-04-28 23:52] LABS: FREE T4 (FREE THYROXINE) 1.4 ng/dL (0.6-1.6); THYROID STIMULATING HORMONE 0.36 uIu/mL (0.34-4.82)
[2022-04-28] MEDS ORDERED: glipiZIDE XL 5 MG TAB ( GLUCOTROL XL) PO ONE (23:56)
[2022-04-28] MEDS: glipiZIDE XL 5 MG TAB ( GLUCOTROL XL) PO SCH (23:58)
--- NOTE | 2022-04-29 00:11 | NUR ---
ADMISSION NOTE Received patient from ER via merly, received report from BRIAN RUBIN. Patient admitted with diagnosis ofSEVERE DEHYDRATION, RENAL FAILURE,UTI . Patient oriented to hospital routine, call light, toileting and safety-patient verbalized understanding.
--- NOTE | 2022-04-29 00:20 | NUR ---
Patient will be admitted to care of Olesya RUBIN. Admitted to tele unit. Will go to room 112b. Belongings list completed. Complete and up to date summary report printed. SBAR report to be given at bedside with opportunity for questions.
[2022-04-29 00:27] VITALS: BP_SYST 153
--- NOTE | 2022-04-29 00:39 | NUR ---
CONSULTATION PAGED/CALLED Reason for Consultation: SEVERE DEHYDRATION;RENAL FAILURE Person Who was Notified: RADHA Consulting Physician: DR SMALL Chief Clerk Specialty: SCHOOL LIBRARY MEDIA PROGRAM DIRECTOR Ordering Physician: DR. CAPONE
[2022-04-29] MEDS: D5W 1,000 ML IV SCH ×2 (01:09→20:58)
[2022-04-29 03:46] VITALS: BP_SYST 147
[2022-04-29] MEDS: glipiZIDE XL 5 MG TAB ( GLUCOTROL XL) PO SCH ×2 (06:15→16:41)
--- NOTE | 2022-04-29 06:15 | NUR ---
PAGED DR ESTELITA ARTEAGA PAGED AT [phone] FOR DIET ORDER. IT WENT TO VOICEMAIL, LEFT VOICEMAIL.
[2022-04-29] MEDS: INSULIN LISPRO SLIDING SCALE 100 UNITS/ML VIAL (humaLOG) SUBCUT PRN ×4 (06:17→21:00)
--- NOTE | 2022-04-29 06:34 | NUR ---
CLOSING NOTE PATIENT IN BED, RESTING, NO S/S OF ACUTE DISTRESS. BREATHING EVEN AND UNLABORED. HOB RAISED. IVF INFUSING WELL. IV SITE PATENT, NO SIGNS OF INFILTRATION OR INFECTION NOTED. SKIN WARM AND DRY TO TOUCH, NO SIGNS OF HYPOGLYCEMIA NOTED. ALL NEEDS MET THROUGHOUT SHIFT. FALL, SAFETY PRECAUTIONS MAINTAINED THROUGHOUT SHIFT. WILL CONTINUE TO MONITOR UNTIL PATIENT CARE IS ENDORSED TO ONCOMING DAYSHIFT NURSE.
[2022-04-29 08:00] VITALS: BP_SYST 124
[2022-04-29 08:06] LABS: ANION GAP 11 (5-15); CALCIUM 7.9 mg/dL (8.4-11.0); CREATININE 2.08 mg/dL (0.55-1.30); GLUCOSE 316 mg/dL (70-99); POTASSIUM 3.4 mmol/L (3.5-5.1); SODIUM SERUM 158 mmol/L (136-145); UREA NITROGEN, BLOOD 97 mg/dL (8-21)
[2022-04-29] MEDS ORDERED: POTASSIUM CHLORIDE 20 MEQ TAB.PRT.SR PO PRN (09:00)
[2022-04-29] MEDS: ATORVASTATIN 10 MG TABLET PO SCH (09:47)
[2022-04-29] MEDS: ASPIRIN 81 MG TABLET(ECOTRIN) PO SCH (09:47)
[2022-04-29] MEDS: PANTOPRAZOLE SODIUM 40 MG TAB PO SCH (09:47)
[2022-04-29 09:56] LABS: CHLORIDE 121 mmol/L (98-107)
[2022-04-29 12:00] VITALS: BP_SYST 123
[2022-04-29 14:43] LABS: BASOPHILS # (AUTO) 0.1 K/uL (0.0-0.2); BASOPHILS % (AUTO) 0.5 % (0.0-2.0); HEMOGLOBIN 12.9 g/dL (12.0-16.0); LYMPHOCYTES # (AUTO) 0.7 K/uL (1.0-5.5); LYMPHOCYTES % (AUTO) 3.9 % (20.5-51.5); MEAN CORPUSCULAR HEMOGLOBIN 31 pg (27-31); MEAN CORPUSCULAR HGB CONC 31 % (32-36); MEAN CORPUSCULAR VOLUME 97 fL (79.0-98.0); MONOCYTES # (AUTO) 0.5 K/uL (0.0-1.0); MONOCYTES % (AUTO) 2.7 % (1.7-9.3); NEUTROPHILS # (AUTO) 17.2 K/uL (1.8-7.7); NEUTROPHILS % (AUTO) 92.9 % (40.0-70.0); PLATELET COUNT (AUTO) 226 K/uL (130-430); RED BLOOD CELL COUNT(AUTO) 4.21 MIL/uL (4.2-6.2); RED CELL DISTRIBUTION WIDTH 14.5 % (9.0-15.0); WHITE BLOOD COUNT (AUTO) 18.5 K/uL (4.8-10.8)
[2022-04-29 16:00] VITALS: BP_SYST 144
--- NOTE | 2022-04-29 19:15 | NUR ---
OPENING NOTE RECEIVED REPORT FROM DAYSHIFT NURSE. PATIENT RECEIVED LYING IN BED, AWAKE, NO S/S OF ACUTE DISTRESS. BREATHING IS EVEN AND UNLABORED. IVF INFUSING WELL. IV SITE PATENT, NO SIGNS OF INFILTRATION OR INFECTION NOTED. SKIN WARM AND DRY TO TOUCH. CALL LIGHT WITH PATIENT. BED ALARM ON. BED IS LOCKED AND AT LOWEST POSITION. WILL CONTINUE TO MONITOR.
[2022-04-29 20:00] VITALS: BP_SYST 145
[2022-04-29] MEDS: cefTRIAXone 1 GM in D5W 50 ML IV SCH (20:58)
--- NOTE | 2022-04-29 23:00 | NUR ---
ROUNDS PATIENT IN BED, RESTING AT THIS TIME. NO SIGNS OF DISCOMFORT. CHEST RISE AND FALL EVEN BILATERALLY. IVF INFUSING WELL. ALL NEEDS MET. WILL CONTINUE TO MONITOR.
[2022-04-30] VITALS: BP_SYST 138
[2022-04-30] MEDS: glipiZIDE XL 5 MG TAB ( GLUCOTROL XL) PO SCH ×2 (06:10→16:15)
[2022-04-30] MEDS: INSULIN LISPRO SLIDING SCALE 100 UNITS/ML VIAL (humaLOG) SUBCUT PRN ×4 (06:11→20:29)
--- NOTE | 2022-04-30 06:45 | NUR ---
CLOSING NOTE PATIENT IN BED, RESTING. NO S/S OF ACUTE DISTRESS NOTED. BREATHING EVEN AND UNLABORED. HOB RAISED. IVF INFUSING WELL, IV SITE IS PATENT, NO SIGNS OF INFILTRATION OR INFECTION NOTED. ALL NEEDS MET THROUGHOUT SHIFT. FALL, SAFETY PRECAUTIONS MAINTAINED THROUGHOUT SHIFT. WILL CONTINUE TO MONITOR UNTIL PATIENT CARE IS ENDORSED TO ONCOMING DAYSHIFT NURSE.
[2022-04-30 06:46] LABS: BASOPHILS % (AUTO) 0.2 % (0.0-2.0); HEMATOCRIT 39.3 % (36-48); LYMPHOCYTES # (AUTO) 0.7 K/uL (1.0-5.5); LYMPHOCYTES % (AUTO) 5.2 % (20.5-51.5); MEAN CORPUSCULAR HEMOGLOBIN 31 pg (27-31); MEAN CORPUSCULAR HGB CONC 33 % (32-36); MEAN CORPUSCULAR VOLUME 94 fL (79.0-98.0); MONOCYTES # (AUTO) 0.7 K/uL (0.0-1.0); MONOCYTES % (AUTO) 4.6 % (1.7-9.3); NEUTROPHILS # (AUTO) 12.9 K/uL (1.8-7.7); PLATELET COUNT (AUTO) 189 K/uL (130-430); RED BLOOD CELL COUNT(AUTO) 4.18 MIL/uL (4.2-6.2); RED CELL DISTRIBUTION WIDTH 13.7 % (9.0-15.0); WHITE BLOOD COUNT (AUTO) 14.3 K/uL (4.8-10.8)
[2022-04-30] MEDS: PANTOPRAZOLE SODIUM 40 MG TAB PO SCH (08:27)
[2022-04-30] MEDS: ASPIRIN 81 MG TABLET(ECOTRIN) PO SCH (08:27)
[2022-04-30] MEDS: ATORVASTATIN 10 MG TABLET PO SCH (08:27)
[2022-04-30 08:37] LABS: ANION GAP 8 (5-15); CALCIUM 8.6 mg/dL (8.4-11.0); CREATININE 1.36 mg/dL (0.55-1.30); GLUCOSE 212 mg/dL (70-99); POTASSIUM 3.6 mmol/L (3.5-5.1); SODIUM SERUM 155 mmol/L (136-145); UREA NITROGEN, BLOOD 60 mg/dL (8-21)
[2022-04-30 09:00] VITALS: BP_SYST 155
--- NOTE | 2022-04-30 09:14 | NUR ---
MD ALBINO COVINGTON CALLED. STATED HE ALREADY ROUNDED AND ONLY ROUNDED ONCE A DAY. STATED HE WILL SEE PATIENT TOMORROW.
[2022-04-30 09:29] LABS: CHLORIDE 120 mmol/L (98-107)
[2022-04-30 12:02] VITALS: BP_SYST 18
--- NOTE | 2022-04-30 12:48 | NUR ---
CONSULT: PULMO LUNG METS DR. FRITZ COVERING FOR DR. SOLANO [phone] S/W: WISAM
[2022-04-30] MEDS: D5W 1,000 ML IV SCH ×2 (16:04→20:25)
--- NOTE | 2022-04-30 16:40 | NUR ---
rn notes patient remains on room air, no sob noted. Patient does not have any appetite. Patients daughter wants glucerna to be started. BS has been in the low 200's. VSS.
[2022-04-30 19:00] VITALS: BP_SYST 136
--- NOTE | 2022-04-30 19:15 | NUR ---
change of shift.pt.presents lethargic affect.pt.presents loc;slight confused.pt.presents iv access location lt.forearm.iv fluids d5w.dtr present.dtr stated pt.presents very poor oral intact/appetite.to f/u w .pt.presents activity status;bedrest.pt.presents incontinence:bladder/bowel.call light/telephone w/in access of the pt.
[2022-04-30 20:00] VITALS: BP_SYST 136
--- NOTE | 2022-04-30 20:00 | NUR ---
pt.assessed.v/s assessed values wnl.no c/o pain,nausea.iv access intact;patent.pt.apprised that snacks/beverages are available w/in the shift.pt.assessed for cleanliness.pt.repositioned.call light/telephone placed w/in access of the pt.
--- NOTE | 2022-04-30 20:30 | NUR ---
blood glucose assessed value;217mg/dl.
[2022-04-30] MEDS ORDERED: cefTRIAXone 1 GM VIAL ONE (20:55)
--- NOTE | 2022-04-30 21:00 | NUR ---
insulin humalog;4-u administered per the sliding scale parameters.
--- NOTE | 2022-04-30 22:00 | NUR ---
pt.assessed.pt.quiescent.somnolent.per flacc pain mgx pt.absent facial grimaces/body posturing.pt.assessed for cleanliness. pt.repositioned.call light/telephone placed w/in access of the pt.
[2022-04-30] MEDS: cefTRIAXone 1 GM in D5W 50 ML IV SCH (22:58)
[2022-05-01] VITALS: BP_SYST 146
--- NOTE | 2022-05-01 | NUR ---
pt.assessed.v/s assessed values wnl.no c/o pain,nausea.no requests posited@this hour.iv access intact;patent.pt.assessed for cleanliness.pt.repositioned.call light/telephone placed w/in access of the pt.
--- NOTE | 2022-05-01 02:00 | NUR ---
pt.assessed.pt.quiescent;somnolent.per flacc pain mgx pt.absent facial grimaces/body posturing.pt.assessed for cleanliness. pt.repositioned.eioned. pt.assessed.pt.quiescent;somnolent.per flacc pain mgx pt.absent facial grimaces/body posturing.pt.assessed for cleanliness. pt.repositioned.iv access intact;patent.call light/telephone placed w/in access of the pt.
--- NOTE | 2022-05-01 04:00 | NUR ---
pt.assessed.pt.quiescent,somnolent.per flacc pain mgx pt.absent facial grimaces/body posturing.pt.assessed for cleanliess.pt.repositioned.iv access intact;patent.call light/telephone w/in access of the pt.
[2022-05-01] MEDS: glipiZIDE XL 5 MG TAB ( GLUCOTROL XL) PO SCH ×2 (05:20→17:23)
[2022-05-01] MEDS: INSULIN LISPRO SLIDING SCALE 100 UNITS/ML VIAL (humaLOG) SUBCUT PRN ×4 (05:23→21:02)
--- NOTE | 2022-05-01 06:18 | NUR ---
pt.assessed.pt.quiescent;somnolent.per flacc pain mgx pt.absent facial grimaces/body posturing.pt.assessed for cleanliness.pt.repositioned.blood glucose assessed value;169mg/dl.insulin;humalo-u administered.call light/ telephone placed w/in access of the pt.
[2022-05-01 07:01] LABS: BASOPHILS % (AUTO) 0.1 % (0.0-2.0); EOSINOPHILS # (AUTO) 0.1 K/uL (0.0-0.4); EOSINOPHILS % (AUTO) 0.9 % (0.0-4.0); HEMATOCRIT 36.3 % (36-48); HEMOGLOBIN 11.9 g/dL (12.0-16.0); LYMPHOCYTES # (AUTO) 0.9 K/uL (1.0-5.5); LYMPHOCYTES % (AUTO) 6.9 % (20.5-51.5); MEAN CORPUSCULAR HEMOGLOBIN 31 pg (27-31); MEAN CORPUSCULAR HGB CONC 33 % (32-36); MEAN CORPUSCULAR VOLUME 93 fL (79.0-98.0); MONOCYTES # (AUTO) 0.5 K/uL (0.0-1.0); NEUTROPHILS # (AUTO) 11.1 K/uL (1.8-7.7); NEUTROPHILS % (AUTO) 88.1 % (40.0-70.0); PLATELET COUNT (AUTO) 153 K/uL (130-430); RED BLOOD CELL COUNT(AUTO) 3.88 MIL/uL (4.2-6.2); RED CELL DISTRIBUTION WIDTH 13.4 % (9.0-15.0); WHITE BLOOD COUNT (AUTO) 12.6 K/uL (4.8-10.8)
[2022-05-01 07:35] LABS: ANION GAP 6 (5-15); CALCIUM 7.4 mg/dL (8.4-11.0); CHLORIDE 113 mmol/L (98-107); CREATININE 1.26 mg/dL (0.55-1.30); GLUCOSE 219 mg/dL (70-99); POTASSIUM 3.6 mmol/L (3.5-5.1); SODIUM SERUM 147 mmol/L (136-145); UREA NITROGEN, BLOOD 48 mg/dL (8-21)
[2022-05-01 08:00] VITALS: BP_SYST 159
[2022-05-01] MEDS: PANTOPRAZOLE SODIUM 40 MG TAB PO SCH (09:31)
[2022-05-01] MEDS: ATORVASTATIN 10 MG TABLET PO SCH (09:31)
[2022-05-01] MEDS: ASPIRIN 81 MG TABLET(ECOTRIN) PO SCH (09:31)
[2022-05-01 11:36] VITALS: BP_SYST 91
--- NOTE | 2022-05-01 11:37 | NUR ---
CONSULTATION PAGED/CALLED Reason for Consultation: []pre-op clearance Person Who was Notified: []Rea Consulting Physician: [] Dr. Estrada Cycle Touring Guide Specialty: []shira Ordering Physician: []Dr. North
--- NOTE | 2022-05-01 14:59 | NUR ---
ROUNDS LATE ENTRY DUE TO PATIENT CARE. 07:30- ASSUMED PATIENT CARE. IN BED WITH EYES CLOSED. DAUGHTER AT THE BEDSIDE. DOES NOT APPEAR TO BE IN DISTRESS. DESK ASSISTANT MAGDANGAL FOR DR COVINGTON HERE TO [facility] PATIENT ABOUT PLAN PROCEDURE IN AM. PLAN OF CARE DISCUSSED. PATIENT VERBALIZED UNDERSTANDING
--- NOTE | 2022-05-01 15:12 | NUR ---
THORNTON INSERTION LATE ENTRY 14:00- THORNTON CATHETER FR 16 INSERTION USING ASEPTIC TECHNIQUE. PATIENT TOLERATED PROCEDURE WELL
[2022-05-01 15:37] VITALS: BP_SYST 109
--- NOTE | 2022-05-01 15:45 | NUR ---
MINI BAR ATTENDANT RUFINA Ayesha responded to a phone request for Social Service Support from assigned RN Malorie. RUFINA Hodge met with patient and her two daughters Dorota and Alexandria at bedside. SIVAKUMARW completed introductions and provided business card. Dorota and Alexandria requested information about Advance Directive. ACSW provided family 2 types of Advance Directive and informed them patient needs to be alert and orientated x4 to complete and sign. ACSW will continue to be available as needed Addendum: 05/02/22 at 1249 by Kacie Hemphill MACHINE PLUG SHAPER Stunt Person MACHINE PLUG SHAPER met with both dtrs, Alexandria and Dorota. MACHINE PLUG SHAPER introduced self and provided them with a business card. MACHINE PLUG SHAPER asked if explained what hospice is and why he is recommending it. Alexandria and Dorota stated they would like to speak to the re. pts. prognosis and needs so that they can make a better informed decision. MACHINE PLUG SHAPER provided pts. dts. with a hospice list and explained this was just some resources. MACHINE PLUG SHAPER also explained to dts, the family can call different hospice providers to see what services they provide. MACHINE PLUG SHAPER asked Rodriguez Mcdaniel if she could have the call Dorota to discuss pt. prognosis. Violeta stated the family declined the procedure to determine if the mass in pts. bladder was benign or malignant. Rn will call the to ask him to call family.
--- NOTE | 2022-05-01 16:44 | NUR ---
ST EVALUATION COMPLETED. ST TX NOT INDICATED AT THIS TIME. RECOMMEND PO DIET OF PUREE AND THIN LIQUIDS. 1:1 FEEDER AND FULL ASPIRATION PRECAUTIONS.
[2022-05-01] MEDS: D5W 1,000 ML IV SCH (17:27)
--- NOTE | 2022-05-01 17:53 | NUR ---
DR COVINGTON HERE TO EVALUATE PATIENT. S/W WITH DAUGHTER RADHA AND EXPLAINED SURGERY. I SPOKE WITH KIZZY AFTER AND KIZZY STATED THAT DUE TO COMPLICATED SURGERY AND QUALITY OF LIFE AFTER, SHE WILL NEED TO TO TALK TO HER SISTER AND WILL GET BACK WITH DR COVINGTON
[2022-05-01 20:00] VITALS: BP_SYST 117
--- NOTE | 2022-05-01 20:05 | NUR ---
Opening notes Pt AAOx3, VSS, O2 sat 97% on room air, afebrile. No distress or discomfort noted. IVF infusing L. FA 22G clear and patent. L. BKA. Rush catheter draining to gravity, yellow urine with sediments. Call light within reach. Bed low, locked, siderails up x3, alarm on. Contact isolation maintained. Encouraged pt to call for assistance, pt verb understdning. To monitor.
[2022-05-01] MEDS: cefTRIAXone 1 GM in D5W 50 ML IV SCH (20:52)
[2022-05-02] VITALS: BP_SYST 126
[2022-05-02] MEDS: glipiZIDE XL 5 MG TAB ( GLUCOTROL XL) PO SCH ×2 (06:39→16:24)
--- NOTE | 2022-05-02 06:39 | NUR ---
Closing notes Pt alert, awake, no s/s distress or discomfort. BS checked 160. Pt maintained NPO for procedure today. IVF infusing at ordered rate D5W @50cc/hr. Rush catheter drained 400ml antoni with sediments. Call light within reach. Safety maintained. To endorse to AM nurse.
[2022-05-02 07:10] LABS: BASOPHILS % (AUTO) 0.2 % (0.0-2.0); EOSINOPHILS # (AUTO) 0.4 K/uL (0.0-0.4); EOSINOPHILS % (AUTO) 2.8 % (0.0-4.0); HEMATOCRIT 33.9 % (36-48); HEMOGLOBIN 11.3 g/dL (12.0-16.0); LYMPHOCYTES % (AUTO) 6.4 % (20.5-51.5); MEAN CORPUSCULAR HEMOGLOBIN 31 pg (27-31); MEAN CORPUSCULAR HGB CONC 33 % (32-36); MEAN CORPUSCULAR VOLUME 93 fL (79.0-98.0); MONOCYTES # (AUTO) 0.6 K/uL (0.0-1.0); NEUTROPHILS % (AUTO) 86.6 % (40.0-70.0); PLATELET COUNT (AUTO) 137 K/uL (130-430); RED BLOOD CELL COUNT(AUTO) 3.64 MIL/uL (4.2-6.2); RED CELL DISTRIBUTION WIDTH 12.6 % (9.0-15.0); WHITE BLOOD COUNT (AUTO) 15.1 K/uL (4.8-10.8)
[2022-05-02 07:40] VITALS: BP_SYST 131
--- NOTE | 2022-05-02 07:40 | NUR ---
OPEN NOTE Patient in bed resting with daughter at bedside. A/Ox 2 eritrean speaking. No pain, no sob, no distress noted at this time. IV to LFA 22G patent and on infusion pump. Patient has abdullahi catheter draining to gravity with moderate sediment. Patient is NPO due to cystocopy that will be done at aprox 1630 today. Patient is oriented to room. Call light is within reach and all needs met at this time. Will continue to monitor.
[2022-05-02 07:57] LABS: ANION GAP 8 (5-15); CALCIUM 8.1 mg/dL (8.4-11.0); CHLORIDE 109 mmol/L (98-107); CREATININE 1.09 mg/dL (0.55-1.30); GLUCOSE 160 mg/dL (70-99); POTASSIUM 3.5 mmol/L (3.5-5.1); SODIUM SERUM 145 mmol/L (136-145); UREA NITROGEN, BLOOD 38 mg/dL (8-21)
[2022-05-02] MEDS: ASPIRIN 81 MG TABLET(ECOTRIN) PO SCH (09:10)
[2022-05-02] MEDS: ATORVASTATIN 10 MG TABLET PO SCH (09:11)
[2022-05-02] MEDS: PANTOPRAZOLE SODIUM 40 MG TAB PO SCH (09:11)
[2022-05-02] MEDS: INSULIN LISPRO SLIDING SCALE 100 UNITS/ML VIAL (humaLOG) SUBCUT PRN ×3 (11:52→21:55)
[2022-05-02 12:00] VITALS: BP_SYST 95
--- NOTE | 2022-05-02 12:00 | NUR ---
PATIENT ROUNDS Patient in bed resting with daughters at bedside. No pain, no sob, no distress noted at this time. IV to LFA 22G patent and on infusion pump. Took pictures of patient coccyx's due to redness. Patient has abdullahi catheter draining to gravity with moderate sediment. Call light is within reach and all needs met at this time. bed is locked in lowest position. Will continue to monitor.
[2022-05-02 16:05] VITALS: BP_SYST 143
--- NOTE | 2022-05-02 18:51 | NUR ---
CLOSING NOTE Patient in bed resting with daughter at bedside. A/Ox 2 Kiswahili speaking. No pain, no sob, no distress noted at this time. IV to LFA 22G patent and on infusion pump. Patient has abdullahi catheter draining to gravity with moderate sediment. Call light is within reach and all needs met at this time. Bed is locked in lowest position. Will endorse to night cleaner nurse.
[2022-05-02 20:25] VITALS: BP_SYST 150
[2022-05-02] MEDS: cefTRIAXone 1 GM in D5W 50 ML IV SCH (21:47)
[2022-05-03 00:50] VITALS: BP_SYST 132
[2022-05-03] MEDS: D5W 1,000 ML IV SCH ×2 (04:45→23:40)
[2022-05-03] MEDS: glipiZIDE XL 5 MG TAB ( GLUCOTROL XL) PO SCH ×2 (06:34→16:53)
--- NOTE | 2022-05-03 06:40 | NUR ---
Closing notes Pt alert, awake, resting in bed, no s/s distress noted. BS checked 163, 2 units Humalog administered per protocol. IVF infusing at ordered rate L.FA 22 no s/s infiltration. Rush catheter draining to gravity drained 450 antoni cloudy urine. Pt's daughters at bedside. Pt repositioned. Bed low, locked, siderails upx3, alarm on. To endorse to AM nurse.
[2022-05-03] MEDS: INSULIN LISPRO SLIDING SCALE 100 UNITS/ML VIAL (humaLOG) SUBCUT PRN ×4 (06:41→21:45)
[2022-05-03 07:40] VITALS: BP_SYST 107
--- NOTE | 2022-05-03 07:40 | NUR ---
OPEN NOTE Patient in bed resting with daughters at bedside. A/Ox 2 Malay speaking. No pain, no sob, no distress noted at this time. IV to LFA 22G patent and on infusion pump. Patient has abdullahi catheter draining to gravity with moderate sediment. Patient is oriented to room. Call light is within reach and all needs met at this time. Bed is locked in lowest position. Will continue to monitor.
[2022-05-03 08:02] LABS: ANION GAP 6 (5-15); CALCIUM 7.8 mg/dL (8.4-11.0); CHLORIDE 105 mmol/L (98-107); CREATININE 0.95 mg/dL (0.55-1.30); GLUCOSE 142 mg/dL (70-99); POTASSIUM 3.3 mmol/L (3.5-5.1); SODIUM SERUM 140 mmol/L (136-145); UREA NITROGEN, BLOOD 28 mg/dL (8-21)
[2022-05-03] MEDS: ATORVASTATIN 10 MG TABLET PO SCH (08:17)
[2022-05-03] MEDS: ASPIRIN 81 MG TABLET(ECOTRIN) PO SCH (08:17)
[2022-05-03] MEDS: PANTOPRAZOLE SODIUM 40 MG TAB PO SCH (08:17)
--- NOTE | 2022-05-03 11:51 | NUR ---
Dietitian Recommendations * Continue regular diet with pureed textures per BIOMEDICAL ENGINEERING TECHNICIAN * Limit dietary restrictions for increased PO intake and gratification * Chocolate Glucerna TID Please refer to Nutritional Assessment for details, thanks! CC, MPH, RDN
--- NOTE | 2022-05-03 12:00 | NUR ---
RAILROAD PASSENGER AGENT/HOSPICE UPDATE ACSW Ayesha responded to request for Social Service support due to family informing physician they are ready to move forward with Hospice services ACSW Ayesha met with patient and her daughter Alexandria at bedside. ACSW shared contact was to discuss hospice and choice of provider. Alexandria shared they would like patient to return to [facility] while they decide, but Alexandria requested for ACSW to return after 2pm when patient's other daughter Dorota is present. ACSW will continue to be available as needed. Addendum: 05/03/22 at 1533 by Ayesha LINDQUIST ACSW met with patient's daughter at bedside. Alexandria shared other daughter would not be present till later. ACSW discussed sending out packet now, and encouraged Alexandria to speak with hospice provider to obtain further information regarding process and services. [facility] faxed packet to [facility] P: F: ACSW contacted Chasidy at [facility] to inform her of fax being sent. ACSW will continue to be available as needed
--- NOTE | 2022-05-03 12:00 | NUR ---
PATIENT ROUNDS Patient in bed resting with daughters at bedside. No pain, no sob, no distress noted at this time. IV to LFA 22G patent and on infusion pump. Patient has abdullahi catheter draining to gravity with moderate sediment. Call light is within reach and all needs met at this time. bed is locked in lowest position. Will continue to monitor.
--- NOTE | 2022-05-03 12:07 | NUR ---
PHYSICAL THERAPY IS BEING HELD DUE TO MULTIPLE MD NOTES INDICATING COMFORT MEASURES ONLY.
[2022-05-03 12:08] VITALS: BP_SYST 106
[2022-05-03] MEDS: KCL 20 mEq in 100 mL (PREMIX) 100 ML IV SCH ×2 (12:29→14:51)
[2022-05-03 12:34] LABS: RED BLOOD CELL COUNT(AUTO) 3.51 MIL/uL (4.2-6.2)
[2022-05-03 12:35] LABS: BASOPHILS % (AUTO) 0.4 % (0.0-2.0); EOSINOPHILS % (AUTO) 5.9 % (0.0-4.0); HEMATOCRIT 32.8 % (36-48); HEMOGLOBIN 10.8 g/dL (12.0-16.0); LYMPHOCYTES # (AUTO) 0.9 K/uL (1.0-5.5); LYMPHOCYTES % (AUTO) 6.2 % (20.5-51.5); MEAN CORPUSCULAR HEMOGLOBIN 31 pg (27-31); MEAN CORPUSCULAR HGB CONC 33 % (32-36); MEAN CORPUSCULAR VOLUME 94 fL (79.0-98.0); MONOCYTES % (AUTO) 5.2 % (1.7-9.3); NEUTROPHILS # (AUTO) 12.5 K/uL (1.8-7.7); NEUTROPHILS % (AUTO) 82.3 % (40.0-70.0); PLATELET COUNT (AUTO) 132 K/uL (130-430); RED CELL DISTRIBUTION WIDTH 12.9 % (9.0-15.0)
[2022-05-03 12:36] LABS: BASOPHILS # (AUTO) 0.1 K/uL (0.0-0.2); EOSINOPHILS # (AUTO) 0.9 K/uL (0.0-0.4); MONOCYTES # (AUTO) 0.8 K/uL (0.0-1.0); WHITE BLOOD COUNT (AUTO) 15.2 K/uL (4.8-10.8)
[2022-05-03 18:06] VITALS: BP_SYST 98
--- NOTE | 2022-05-03 18:51 | NUR ---
CLOSING NOTE Patient in bed resting with daughter at bedside. A/Ox 2 Sami speaking. No pain, no sob, no distress noted at this time. IV to LFA 22G patent and on infusion pump. Patient has abdullahi catheter draining to gravity with moderate sediment. Call light is within reach and all needs met at this time. Bed is locked in lowest position. Will endorse to key ringer nurse.
[2022-05-03 20:09] VITALS: BP_SYST 108
--- NOTE | 2022-05-03 20:13 | NUR ---
RECEIVED PT LYING IN BED, NO DISTRESS NOTED, DENIES PAIN. AAOX1, IVF INFUSING TO LFA SITE CDI. F/C DRAIN RUTHIE COLOR URINE. DRSG TO SACRUM CDI.
[2022-05-03 20:28] VITALS: BP_SYST 125
[2022-05-03] MEDS: cefTRIAXone 1 GM in D5W 50 ML IV SCH (21:42)
[2022-05-04 00:35] VITALS: BP_SYST 116
[2022-05-04] MEDS: glipiZIDE XL 5 MG TAB ( GLUCOTROL XL) PO SCH (06:12)
--- NOTE | 2022-05-04 07:15 | NUR ---
Received report from shift lab technician RN and assumed patient care.
[2022-05-04 08:00] VITALS: BP_SYST 131
[2022-05-04] MEDS: ASPIRIN 81 MG TABLET(ECOTRIN) PO SCH (09:11)
[2022-05-04] MEDS: ATORVASTATIN 10 MG TABLET PO SCH (09:11)
[2022-05-04] MEDS: PANTOPRAZOLE SODIUM 40 MG TAB PO SCH (09:11)
--- NOTE | 2022-05-04 11:00 | NUR ---
BURN NURSE/HOSPICE UPDATE ACSW Ayesha contacted [facility] to obtain update. Sherly shared the family would be moving forward with hospice services, but due to COVID concerns at [facility] the patient would instead be transferred to [facility] temporarily. They will provide transport info to Nurse. ACSW will continue to be available as needed
--- NOTE | 2022-05-04 11:09 | NUR ---
Received a call from [facility], and spoke to Rodrigo, provided updates on patient and report on the patient. No beds noted at the moment, will reinforce if needed throughout the shift. Will inform family members at bedside.
[2022-05-04] MEDS: INSULIN LISPRO SLIDING SCALE 100 UNITS/ML VIAL (humaLOG) SUBCUT PRN (11:42)
[2022-05-04 12:28] VITALS: BP_SYST 98
--- NOTE | 2022-05-04 13:24 | NUR ---
AGNES FROM [facility] CALLED. PT IS GOING BACK TO [facility]. WELT WHEELER TIME IS BETWEEN 1500 1600 TODAY WITH [facility] ([phone]). PT IS GOING TO ROOM G 109.
--- NOTE | 2022-05-04 13:40 | NUR ---
Informed patient's family members of the plan of care, with the approx pickup time is [id number], no additional questions noted at the moment from the patient and family members. Will reinforce if needed throughout the shift.
[2022-05-04 14:36] VITALS: BP_SYST 143
--- NOTE | 2022-05-04 15:21 | NUR ---
Gave report to Pat from [facility], and gave bedside report to [facility] medical staff for transport, no additional questions noted and informed patient and family about the transfer. Will reinforce if needed throughout the shift.
== END 2022-05-04 16:52 | DRG 871 ==
LOC: SED 17:49 → STU 21:32
PROVIDERS: ADMIT Family Medicine; ATTEND Family Medicine
PROC: 0T9B70Z Drainage of Bladder with Drainage Device, Via Natural or Artificial Opening (ICD-10-PCS; principal; 2022-04-28)
DX: A41.9 Sepsis, unspecified organism (principal); E43 Unspecified severe protein-calorie malnutrition; N17.0 Acute kidney failure with tubular necrosis; G93.41 Metabolic encephalopathy; E87.0 Hyperosmolality and hypernatremia; E87.1 Hypo-osmolality and hyponatremia; N13.6 Pyonephrosis; Z68.1 Body mass index [BMI] 19.9 or less, adult; E78.5 Hyperlipidemia, unspecified; I10 Essential (primary) hypertension; E11.51 Type 2 diabetes mellitus with diabetic peripheral angiopathy without gangrene; N32.9 Bladder disorder, unspecified; E86.0 Dehydration; Z20.822 Contact with and (suspected) exposure to COVID-19; F31.9 Bipolar disorder, unspecified; I25.10 Atherosclerotic heart disease of native coronary artery without angina pectoris; I25.2 Old myocardial infarction; R91.8 Other nonspecific abnormal finding of lung field; Z79.82 Long term (current) use of aspirin; Z79.84 Long term (current) use of oral hypoglycemic drugs; Z79.899 Other long term (current) drug therapy; Z86.73 Personal history of transient ischemic attack (TIA), and cerebral infarction without residual deficits; Z89.512 Acquired absence of left leg below knee; Z90.5 Acquired absence of kidney; Z95.5 Presence of coronary angioplasty implant and graft
CPT/HCPCS: 36415; 71045; 71250-TC; 76376; 76770; 80048; 80053; 80061; 81000; 82009; 82150; 82550; 82962; 83036; 83605; 83690; 83735; 83880; 84100; 84439; 84443; 85025; 85610-TC; 85730-TC; 87040; 87086; 92610-GN; 93005; 93306; 96361; 96365; 97530-GP; 99285; G0378; J0696; J3480; J7060

== ENCOUNTER 2022-05-27 10:43 | Inpatient (IN) | payer OTHER, MEDICAID ==
[~2022-05-27] VITALS: Ht 152.4 cm; Wt 53.1 kg
[2022-05-27] MEDS: POTASSIUM CHLORIDE 20 MEQ in D5/0.45 NS 1,000 ML IV SCH (08:00)
[~2022-05-27 10:43] MED LIST changes: -CEPH250C PO
[2022-05-27 10:55] VITALS: BP_SYST 137
[2022-05-27] MEDS ORDERED: ACETAMINOPHEN 650 MG SUPP.RECT RC ONE (11:00)
[2022-05-27] MEDS ORDERED: PIPERACILLIN/TAZO 3.375 GM in D5W 50 ML IV ONE (11:00)
[2022-05-27] MEDS ORDERED: NS 1000 ML IV.SOLN IV ONE (11:00)
[2022-05-27] MEDS ORDERED: PIPERACILLIN/TAZOBACTAM 3.375 GM/VIAL (ZOSYN) IV ONE (11:03)
[2022-05-27] MEDS ORDERED: ONDANSETRON HCL 4 MG/2 ML VIAL IVP ONE (11:30)
--- NOTE | 2022-05-27 11:45 | NUR ---
Patient to ER bed 02 to gown for evaluation. Side rails up.
--- NOTE | 2022-05-27 11:47 | NUR ---
Pt was brought from [facility] for hematuria and elevated temperature. 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 Pt was placed on hospice two weeks ago but family was unable to locate a bed for her. Care was downgraded to long-term for the purposes of placement. Pt answers questions yes or no but fails to answer A&O questions appropriately beyond name. Pt has hx of HTN, diabetes and L BKA. Tachypneic on arrival with hypotension prompting sepsis eval. Daughters have been present at the bedside throughout the day. Will monitor and provide care as ordered.
--- NOTE | 2022-05-27 11:58 | NUR ---
ER Dr. Dillon at bedside examining patient.
[2022-05-27 12:52] LABS: HEMATOCRIT 28.2 % (36-48); MEAN CORPUSCULAR VOLUME 93 fL (79.0-98.0); PLATELET COUNT (AUTO) 271 K/uL (130-430); RED BLOOD CELL COUNT(AUTO) 3.05 MIL/uL (4.2-6.2); RED CELL DISTRIBUTION WIDTH 14.1 % (9.0-15.0)
[2022-05-27 13:18] LABS: ANION GAP 7 (5-15); CHLORIDE 107 mmol/L (98-107); CREATININE 1.17 mg/dL (0.55-1.30); GLUCOSE 261 mg/dL (70-99); POTASSIUM 3.8 mmol/L (3.5-5.1); UREA NITROGEN, BLOOD 20 mg/dL (8-21)
[2022-05-27 13:34] LABS: BAND % (MANUAL) 9 % (0-6); BASOPHILS % (MANUAL) 0 % (0-2); EOSINOPHILS % (MANUAL) 0 % (0-7); LYMPHOCYTES % (MANUAL) 2 % (20-46); MONOCYTES % (MANUAL) 1 % (0-11)
[2022-05-27 13:41] LABS: BILIRUBIN,URINE 1+ (NEGATIVE); BLOOD, URINE 3+ (NEGATIVE); CLARITY/URINE SL CLOUDY (CLEAR); COLOR,URINE RED (YELLOW); GLUCOSE,URINE TRACE (NEGATIVE); KETONES,URINE TRACE (NEGATIVE); PH,URINE 6.5 (5.0-8.0); PROTEIN URINE 3+ (NEGATIVE)
[2022-05-27 13:41] LABS: ALANINE AMINOTRANSFERASE 33 U/L (12-78); ALBUMIN 1.2 g/dL (3.4-4.8); ASPARTATE AMINOTRANSFERASE 42 U/L (10-37); TOTAL BILIRUBIN 0.5 mg/dL (0.0-1.0)
[2022-05-27 13:45] LABS: LEUKOCYTE ESTERASE ,URINE 2+ (NEGATIVE); NITRITE, URINE NEGATIVE (NEGATIVE)
[2022-05-27] MEDS ORDERED: VANCOMYCIN HCL 1,000 MG in NS 250 ML IV ONE (13:45)
[2022-05-27 13:46] LABS: BACTERIA,URINE MODERATE /HPF (None Seen); MUCUS,URINE None Seen /LPF (None Seen); RBC,URINE >100 /HPF (0-3); WBC,URINE 20-50 /HPF (0-3)
[2022-05-27 14:05] LABS: CALCIUM 9.3 mg/dL (8.4-11.0)
[2022-05-27] MEDS ORDERED: VANCOMYCIN HCL 1000 MG/VIAL IV ONE (14:29)
[2022-05-27] MEDS ORDERED: NACL 0.9% 1,000 ML IV ONE (14:45)
--- NOTE | 2022-05-27 15:59 | NUR ---
Medication reconciliation completed with information provided by Markie Jacob. Any prior medication reconciliation on file was reviewed and corrected.
--- NOTE | 2022-05-27 16:00 | NUR ---
Admit bed requested Patient will be admitted to care of Dr. Colmenares. Admitted to Tele unit. Diagnosis Sepsis, Pneumonia Inpatient (Yes or No) Y Observation (Yes or No) N Orientation concerns or request close to nursing station (Yes or No) N Covid Status Pending On vent or bipap N Isolation requirements N Needs a sitter N From Home (Yes or if No enter name of facility) Y Requires Dialysis (Yes or No) N Med Rec Completed (Yes of No) Y
[2022-05-27] MEDS ORDERED: KCL 20 mEq in D5/0.45NS 1000mL 1,000 ML IV ONE (18:35)
[2022-05-27] MEDS ORDERED: *PPN PER PHARMACY XX PRN (19:00)
--- NOTE | 2022-05-27 19:00 | NUR ---
I recieved pt in bed he is alert and oriented x 4.he has IVF in progress @100cc/hr via right upper PICC.vitals obained are WNL.medicated as precribed.she has relatives by the bedside
[2022-05-27] MEDS: MEROPENEM 500 MG in NS 50 ML IV SCH (22:39)
[2022-05-27] MEDS ORDERED: MEROPENEM 500 MG VIAL IV ONE (22:41)
[2022-05-27] MEDS: INSULIN REGULAR, HUMAN 100 UNITS/ML, 3 ML VIAL (humuLIN R) SUBCUT PRN (22:52)
[2022-05-27] MEDS ORDERED: INSULIN Lispro 100 UNITS/ML, 3 ML VIAL (humaLOG) ONE (22:56)
[2022-05-28] VITALS (7 sets, daily range): BP systolic 100–114
--- NOTE | 2022-05-28 | NUR ---
daughters by bedside comunicating with her.pt updated on vitals .pt propped up in bed.vitals WNL
--- NOTE | 2022-05-28 | NUR ---
pt has a bedsore to sacral area appliied dressing
--- NOTE | 2022-05-28 00:05 | NUR ---
pt has a stage 2 bedsore
--- NOTE | 2022-05-28 00:28 | NUR ---
PT WAS RECIEVED AT 0015 FROM THE ER.
[2022-05-28] MEDS: MEROPENEM 500 MG in NS 50 ML IV SCH ×3 (05:23→21:13)
[2022-05-28] MEDS ORDERED: MEROPENEM 500 MG VIAL IV ONE (05:26)
--- NOTE | 2022-05-28 08:00 | NUR ---
INITIAL RECEIVED PATIENT ALERT, ABLE TO VERBALIZES SIMPLE TASK, NO C/O PAIN/SOB, VITAL SIGNS W/IN NORMAL LIMITS. RIGHT MIDLINE SWOLLEN AND LEAKING, THORNTON CATHETER RED COLOR URINE DRAINING IN BAG. CONTINUE TO MONITOR PATIENT BED IN LOW POSITION , CALL LIGHT W/IN REACHED AND FAMILY AT BEDSIDE.
--- NOTE | 2022-05-28 08:55 | NUR ---
YULISSA NOTIFIED DR. CHAU MIDLINE SWOLLEN AND LEAKING, NEW ORDER RECEIVED FOR PICC LINE PLACEMENT.
[2022-05-28] MEDS: PANTOPRAZOLE SODIUM 40 MG TAB PO SCH (08:57)
[2022-05-28] MEDS: glipiZIDE XL 5 MG TAB ( GLUCOTROL XL) PO SCH (08:58)
[2022-05-28] MEDS: MEGESTROL ACETATE 400 MG/10 ML UDC PO SCH (08:58)
[2022-05-28] MEDS: INSULIN REGULAR, HUMAN 100 UNITS/ML, 3 ML VIAL (humuLIN R) SUBCUT PRN ×2 (09:17→12:21)
[2022-05-28 09:20] LABS: ANION GAP 7 (5-15); CALCIUM 9.7 mg/dL (8.4-11.0); CHLORIDE 109 mmol/L (98-107); CREATININE 1.12 mg/dL (0.55-1.30); GLUCOSE 304 mg/dL (70-99); POTASSIUM 4.2 mmol/L (3.5-5.1); UREA NITROGEN, BLOOD 29 mg/dL (8-21)
[2022-05-28 09:26] LABS: ALANINE AMINOTRANSFERASE 28 U/L (12-78); ALBUMIN 1.2 g/dL (3.4-4.8); ASPARTATE AMINOTRANSFERASE 43 U/L (10-37); PHOSPHORUS 2.8 mg/dL (2.7-4.5); TOTAL BILIRUBIN 0.3 mg/dL (0.0-1.0)
--- NOTE | 2022-05-28 10:32 | NUR ---
MIDLINE MIDLINE REMOVED.
[2022-05-28 11:10] LABS: PROTHROMBIN TIME 10.7 SECS (9.5-12.5)
--- NOTE | 2022-05-28 13:00 | NUR ---
Consults Spoke to dr. [place] AGENT and made aware of consults. Ordered to flush abdullahi with NS as needed and will see patient in the morning.
--- NOTE | 2022-05-28 13:43 | NUR ---
CONSULTATION PAGED REASON FOR CONSULTATION METASTATIC BLADDER CANCER AND SEVERE RIGHT SIDE HYDRONEPHROSIS WAS CONSULT CALED?Y PERSON WHO WAS NOTIFIED:KIP CONSULTING PHYSICIAN:ALBINO COTTER HEELER MACHINE SPECIALTY:UROLOGY HEELER MACHINE PHONE NUMBER:[phone] REQUESTING PHYSICIAN:FLOYD LOOMIS
--- NOTE | 2022-05-28 15:29 | NUR ---
Notes/PICC- Resting in bed, repositioned for comfort. family at bedside. waiting for PICC line nurse.
--- NOTE | 2022-05-28 15:30 | NUR ---
WOUND EVALUATION: Late note for 05/28/22 at 1530 secondary to patient care. Wound Consult received from Dr. Colmenares. Thank you, Dr. Colmenares, for the consult. Patient received in a Rochelle Bed with an Isoflex ROSANNA mattress, awake, alert, confused. Patient is unable to turn in independently, and pushes back when being turned. Saqib Score is a 12. 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 Recent Labs: WBC 29.0, RBC 3.05, hemoglobin 9.3, hematocrit 28.2, chloride 109, BUN 29, creatinine 1.12, glucose 304, POC glucose 227, AST 43, alkaline phosphatase 119, serum total protein 5.9, albumin 1.2. Microbiology: MRSA screen results in progress. Urine culture results in progress. Blood culture results x2 in progress. 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 Extrinsic factors that delay wound healing: Decreased mobility. Wound Assessment: 1. Coccygeal area: Unstageable pressure ulcer, with possible sDTI, present on admission. Wound bed has 70% yellow slough, 20% purple discoloration, 5% red tissue, 5% pink tissue. No odor, scant yellow drainage. Periwound and surrounding tissue have dull dark red tissue. Dark discolored tissue present at 1 o'clock at 5 o'clock, and 10 o'clock. Wound measures 1.7 cm x 1.6 cm. Recommend: Cleanse wound with normal saline. Apply moisture barrier cream to nicole-wound. Apply 1 small drop of hydrogel to wound bed. Cut Thera-honey dressing to size and place over wound bed. Cover with Sacral foam dressing. Perform wound care daily, and as needed for dressing soiling or dislodgement. 2. Right Lateral Malleolus: Scar tissue with blanchable redness, present on admission. 3. Right Lateral Heel: Blanchable redness, present on admission. Recommend: Cover Right Lateral Malleolus and Right Lateral Heel with foam dressings for protection. Peeling peak dressings every shift for assessment. Change dressings every 3 days and as needed for dressing soiling or dislodgment. Elevate offload and float bilateral lower extremities with 1 pillow lengthwise under each extremity at all times. Ensure that heel or malleolus does not touch bed or other surfaces at any time. Also recommend: Reposition patient every 2 hours with pillow support and off-load pressure areas with pillows for pressure re-distribution. Offload, elevate and float bilateral heels with pillows. Perform skin care and monitor skin integrity Q shift. Use moisture barrier cream on buttocks and other moisture susceptible areas QID and as needed for soiling. Place patient on a P500 low air-loss mattress.
--- NOTE | 2022-05-28 16:01 | NUR ---
Dietitian Recommendations * Continue regular diet - liberalized d/t poor PO x 1 month * Rec ST evaluation for safest PO texture * Refeeding risk - monitor lytes and thiamine x 5 days * Rec MVI and 500mg VIT C/day for wounds; Andrew BID when sepsis resolves * If/when medically appropriate, initiate PPN: - D20 AA8.5% @ 50 mL (goal rate) x 24h + 20%ILE @ 5 mL - Provides daily: 913 kcals, 56g AA, 1440mL; GIR 1.7 mg/kg/min - Meets: 57% lower kcals, 70% lower protein, 95% lower fluid est needs Please refer to nutrition assessment for details, thanks! CC, MPH, RDN
--- NOTE | 2022-05-28 16:13 | NUR ---
PAGED- BLOOD CULTURE IS POSITIVE.. PAGED DR. TORREIUM.
[2022-05-28] MEDS ORDERED: HONEY WOUND DRESSING 1 EACH TP PRN (16:15)
[2022-05-28 17:20] LABS: TRIGLYCERIDES 72 mg/dL (30-150)
[2022-05-28] MEDS: POTASSIUM CHLORIDE 20 MEQ in D5/0.45 NS 1,000 ML IV SCH ×2 (17:21→22:48)
--- NOTE | 2022-05-28 17:34 | NUR ---
PAGED- RE PAGED DR SIMMS RE: BLOOD CULTURE RESULTS.
--- NOTE | 2022-05-28 18:19 | NUR ---
CLOSING NOTES PATIENT REPOSITION EVERY 2 HOUR FOR COMFORT, NO SIGNS OF PAIN OR DISTRESS. PICC LINE TO LEFT UPPER ARM INFUSING PATENT. THORNTON CATHETER INTACT AND DRAINING CONCENTRATED RUTHIE COLOR URINE. ALL SAFETY MEASURE ARE IN PLACE, FAMILY AT BEDSIDE FOR SUPPORT, WILL CONTINUE TO MONITOR AND ENDORSE TO ONCOMING NURSE.
--- NOTE | 2022-05-28 22:02 | NUR ---
RECEIVED REPORT ON PATIENT FROM CARYN ORTIZ, ASSUMED CARE, AND STARTED ASSESSMENT.
[2022-05-29 00:21] VITALS: BP_SYST 84
[2022-05-29 04:00] VITALS: BP_SYST 98
--- NOTE | 2022-05-29 04:33 | NUR ---
PATIENT REMAINS SOUND ASLEEP, RESTING IN NO APPARENT DISTRESS OR DISCOMFORT. BREATHING IS EVEN AND UNLABORED AND CHEST EXPANSION IS EQUAL BILATERALLY. WILL CONTINUE TO MONITOR AND ASSESS FOR SAFETY AND COMFORT.
[2022-05-29] MEDS: INSULIN REGULAR, HUMAN 100 UNITS/ML, 3 ML VIAL (humuLIN R) SUBCUT PRN ×2 (06:06→22:18)
[2022-05-29] MEDS: MEROPENEM 500 MG in NS 50 ML IV SCH ×3 (06:11→22:00)
--- NOTE | 2022-05-29 07:10 | NUR ---
REPORT GIVEN TO CARYN ORTIZ, AND CARE WAS TURNED OVER TO HER.
[2022-05-29 07:50] LABS: ALANINE AMINOTRANSFERASE 27 U/L (12-78); ALBUMIN 0.9 g/dL (3.4-4.8); ANION GAP 4 (5-15); ASPARTATE AMINOTRANSFERASE 32 U/L (10-37); CHLORIDE 109 mmol/L (98-107); CREATININE 0.95 mg/dL (0.55-1.30); GLUCOSE 185 mg/dL (70-99); PHOSPHORUS 1.7 mg/dL (2.7-4.5); TOTAL BILIRUBIN 0.1 mg/dL (0.0-1.0); UREA NITROGEN, BLOOD 29 mg/dL (8-21)
--- NOTE | 2022-05-29 07:56 | NUR ---
INITIAL NOTES RECEIVED PATIENT AWAKE, A/O X3, ABLE TO VERBALIZES NEEDS, ABLE TO FOLLOW SIMPLE DIRECTION. NO C/O PAIN OR DISTRESS. PICC LINE X2 LUMEN PATENT WITH IV INFUSING WELL. THORNTON CATHETER INTACT DRAINING CONCENTRATED RUTHIE COLOR URINE. FAMILY AT BEDSIDE. ALL SAFETY MEASURE IN PLACE , CALL LIGHT W/IN REACHED , BED IN LOW POSITION, AND CONTINUE TO MONITOR
[2022-05-29 08:09] VITALS: BP_SYST 116
[2022-05-29] MEDS: POTASSIUM CHLORIDE 20 MEQ in D5/0.45 NS 1,000 ML IV SCH ×2 (08:54→17:12)
[2022-05-29] MEDS: glipiZIDE XL 5 MG TAB ( GLUCOTROL XL) PO SCH ×3 (09:00→22:01)
[2022-05-29] MEDS: MEGESTROL ACETATE 400 MG/10 ML UDC PO SCH ×3 (09:00→22:01)
[2022-05-29] MEDS: PANTOPRAZOLE SODIUM 40 MG TAB PO SCH (09:09)
--- NOTE | 2022-05-29 12:00 | NUR ---
ROUNDING PATIENT REPOSITION SCHEDULED, MILD DISCOMFORT DURING TURNING, NO C/O PAIN, FAMILY AT BEDSIDE, BED IN LOW POSITION, CALL LIGHT W/IN REACHED, CONTINUE TO MONITOR
[2022-05-29 12:14] VITALS: BP_SYST 139
--- NOTE | 2022-05-29 16:00 | NUR ---
ROUNDING PATIENT REPOSITION EVERY 2 HOURS, FAMILY AT BEDSIDE, CONTINUE TO MONITOR.
[2022-05-29 16:06] VITALS: BP_SYST 141
--- NOTE | 2022-05-29 17:00 | NUR ---
ROUNDING PATIENT GRIMACING DURING POSITIONING BUT REFUSED MEDICATION. FAMILY AT BEDSIDE REQUESTED MEDICATION FOR MILD PAIN, PATIENT CHANGES HER MIND AND REQUESTED PAIN MEDICATION, MEDICATION GIVEN
[2022-05-29] MEDS: ACETAMINOPHEN 325 MG TABLET PO PRN (17:11)
--- NOTE | 2022-05-29 18:04 | NUR ---
CLOSING PATIENT RESTING IN BED WITH FAMILY AT BEDSIDE FOR SUPPORT. NO C/O SOB, NO SIGNS OF ANY DISTRESS. VITAL SIGNS W/IN NORMAL LIMITS. IV PICC LINE INFUSING TO LEFT UPPER ARM. THORNTON CATHETER DRAINING RUTHIE COLOR URINE. BED IN LOW POSITION, CALL LIGHT W/IN REACHED, WILL ENDORSE TO ONCOMING NURSE
--- NOTE | 2022-05-29 19:34 | NUR ---
RECEIVED REPORT ON PATIENT FROM CARYN ORTIZ, ASSUMED CARE, AND STARTED ASSESSMENT.
[2022-05-29 20:00] VITALS: BP_SYST 137
[2022-05-29] MEDS ORDERED: [UNRECOGNIZED DRUG - OTHER] IV SCH ×8 (21:00)
[2022-05-29] MEDS ORDERED: SODIUM ACETATE IV SCH ×8 (21:00)
[2022-05-29] MEDS ORDERED: K PHOS IV SCH ×8 (21:00)
[2022-05-29] MEDS ORDERED: TPN PERIPHERAL IV SCH ×8 (21:00)
[2022-05-30 03:30] VITALS: BP_SYST 146
[2022-05-30] MEDS: POTASSIUM CHLORIDE 20 MEQ in D5/0.45 NS 1,000 ML IV SCH ×2 (05:29→16:04)
[2022-05-30] MEDS: MEROPENEM 500 MG in NS 50 ML IV SCH ×3 (05:31→20:31)
[2022-05-30] MEDS: INSULIN REGULAR, HUMAN 100 UNITS/ML, 3 ML VIAL (humuLIN R) SUBCUT PRN ×4 (06:47→20:29)
[2022-05-30 07:27] LABS: BASOPHILS # (AUTO) 0.1 K/uL (0.0-0.2); BASOPHILS % (AUTO) 0.4 % (0.0-2.0); EOSINOPHILS % (AUTO) 7.3 % (0.0-4.0); HEMATOCRIT 28.9 % (36-48); HEMOGLOBIN 9.5 g/dL (12.0-16.0); LYMPHOCYTES % (AUTO) 3.4 % (20.5-51.5); MEAN CORPUSCULAR HEMOGLOBIN 30 pg (27-31); MEAN CORPUSCULAR HGB CONC 33 % (32-36); MEAN CORPUSCULAR VOLUME 92 fL (79.0-98.0); MONOCYTES # (AUTO) 0.7 K/uL (0.0-1.0); MONOCYTES % (AUTO) 2.7 % (1.7-9.3); NEUTROPHILS % (AUTO) 86.2 % (40.0-70.0); PLATELET COUNT (AUTO) 275 K/uL (130-430); RED BLOOD CELL COUNT(AUTO) 3.16 MIL/uL (4.2-6.2); RED CELL DISTRIBUTION WIDTH 14.1 % (9.0-15.0); WHITE BLOOD COUNT (AUTO) 27.9 K/uL (4.8-10.8)
--- NOTE | 2022-05-30 07:30 | NUR ---
PT RESTING IN BED. PT FAMILY AT BEDSIDE. RR EVEN AND UNLABORED ON 3L NC. PT EDUCATED TO NOT TAKE O2 OFF. THORNTON CATH DRAINING TO GRAVITY. PT AND FAMILY MEMBER EDUCATED TO USE CALL LIGHT IF THEY NEED ASSISTANCE. ALL NEEDS MEET AT THIS TIME. WILL CONTINUE TO MONITOR.
[2022-05-30] MEDS: glipiZIDE XL 5 MG TAB ( GLUCOTROL XL) PO SCH ×3 (09:00→20:21)
[2022-05-30 09:03] LABS: ALANINE AMINOTRANSFERASE 27 U/L (12-78); ANION GAP 5 (5-15); ASPARTATE AMINOTRANSFERASE 32 U/L (10-37); CHLORIDE 104 mmol/L (98-107); CREATININE 0.82 mg/dL (0.55-1.30); GLUCOSE 179 mg/dL (70-99); PHOSPHORUS 1.6 mg/dL (2.7-4.5); POTASSIUM 4.1 mmol/L (3.5-5.1); TOTAL BILIRUBIN 0.3 mg/dL (0.0-1.0); UREA NITROGEN, BLOOD 19 mg/dL (8-21)
[2022-05-30 09:28] VITALS: BP_SYST 145
[2022-05-30] MEDS: MEGESTROL ACETATE 400 MG/10 ML UDC PO SCH ×2 (09:31→20:20)
[2022-05-30] MEDS: PANTOPRAZOLE SODIUM 40 MG TAB PO SCH (09:31)
[2022-05-30 12:00] VITALS: BP_SYST 120
--- NOTE | 2022-05-30 12:00 | NUR ---
PT BS 205 COVERED WITH 4 UNITS. PT REPOSITIONED. FAMILY AT BEDSIDE. ALL NEEDS MEET AT THIS TIME. PT DOES NOT APPEAR TO BE IN PAIN. PT RESTING COMFORTABLY WITH EYES CLOSED. WILL CONTINUE TO MONITOR
[2022-05-30] MEDS: ACETAMINOPHEN 325 MG TABLET PO PRN (14:39)
[2022-05-30] MEDS ORDERED: traMADol HCL HCL 50 MG TABLET (ULTRAM) PO PRN (15:45)
--- NOTE | 2022-05-30 16:00 | NUR ---
PT DAUGHTERS AT BEDSIDE. BOTH STATING PT IS IN MODERATE PAIN. OFFERED PT PAIN MEDICATION. PT VERBALIZED REFUSAL MULTIPLE TIMES. FAMILY WANTED MEDICATION CRUSHED IN YOGURT. PT CONTINUED TO REFUSE PAIN MEDICATION. PT FAMILY WANTED PT TO NOW RECEIVE PAIN MEDICATION THROUGH THE IV. PT VERBALIZED REFUSAL FOR THAT WELL. PT DOES NOT HAVE IV PAIN MEDS ORDERED OF RIGHT NOW. WILL HAVE MD ASSESS THE PT FOR PAIN MEDICATION WHEN HE IS AT BEDSIDE SINCE PT IS SLEEPING COMFORTABLY AND DOES NOT APPEAR TO BE IN PAIN AT THIS TIME.
[2022-05-30 16:11] VITALS: BP_SYST 142
--- NOTE | 2022-05-30 19:10 | NUR ---
DR. SIMMS ROUNDS DR. SIMMS IS AT BEDSIDE MAKING ROUNDS AT THIS TIME.
[2022-05-30 19:35] VITALS: BP_SYST 121
--- NOTE | 2022-05-30 19:35 | NUR ---
INITIAL NOTE AT INITIAL ASSESSMENT, PATIENT IS RESTING IN BED, STABLE, NO SIGNS OF RESPIRATORY DISTRESS. PATIENT VERBALIZES NO PAIN. PLAN OF CARE FOR THE EVENING IS COMMUNICATED WITH THE PATIENT AND HER DAUGHTERS MALLIKA AND YAAKOV AT BEDSIDE, THEY UNDERSTAND THAT PATIENT WILL BE NPO AT MIDNIGHT FOR AM PROCEDURE. CALL LIGHT TEACH BACK IS SUCCESSFUL DUE WITH FAMILY. BED IS LOCKED, ALARMED, AND AT THE LOWEST LEVEL. FALL, SAFETY, RESPIRATORY, AND ASPIRATION PRECAUTIONS WILL BE TAKEN THROUGHOUT THE SHIFT.
[2022-05-30] MEDS ORDERED: HYDROmorphone 1 MG/ML INJ. CARTRIDGE IVP PRN (20:00)
[2022-05-30] MEDS ORDERED: NALOXONE HCL 0.4 MG/ML AMP (NARCAN) IVP PRN (20:00)
[2022-05-30] MEDS: TPN PERIPHERAL IV SCH ×9 (20:33)
[2022-05-30] MEDS: NA PHOS IV SCH ×9 (20:33)
[2022-05-30] MEDS: [UNRECOGNIZED DRUG - OTHER] IV SCH ×9 (20:33)
[2022-05-30] MEDS: SODIUM ACETATE IV SCH ×9 (20:33)
--- NOTE | 2022-05-30 21:10 | NUR ---
PAIN/ REASSESSMENT/ FAMILY BEHAVIOR PATIENT ASKED IF SHE IS EXPERIENCING ANY PAIN, SINCE HER DAUGHTERS AT BEDSIDE STATE "SHE IS IN SEVERE PAIN" THEY SAID THEY CAN TELL BECAUSE SHE IS "VERY TENSE", ON ASSESSMENT, PATIENT STATES "NO I'M NOT IN PAIN, I'M SURE". FULL BODY ASSESSMENT DONE AT THIS TIME, PATIENT DOES NOT HAVE ANY SIGNS OF BEING "TENSE", IN FACT, SHE LOOKS RELAXED AND COMFORTABLE. PRN MEDICATION FOR SEVERE PAIN GIVEN AT 2035, DUE TO BOTH DAUGHTERS STATING THEIR MOM IS IN SEVERE PAIN. THEY WERE MADE AWARE THAT PATIENT WOULD LIKELY GO TO SLEEP AFTER PRN DIALUDID 0.5 MG IVP IS GIVEN BECAUSE IT IS A STRONG MEDICATION, AND THE PATIENT IS OLDER. ON PAIN REASSESSMENT, PATIENT IS SLEEPING SOUNDLY AND COMFORTABLY. DAUGHTER DONNA IS COMPLAINING THAT HER MOM IS NOT TALKING BACK TO HER. SHE WAS RE-EDUCATED THAT DIALUDID IS A STRONG PAIN MEDICATION, AND THAT AN EXPECTED SIDE EFFECT IS SLEEPINESS. DONNA INSISTS THAT DR. SIMMS TOLD HER THAT DILAUDID WOULD MAKE THE PATIENT "MORE AWAKE". VITAL SIGNS STABLE. PATIENT SLEEPING SOUNDLY.
--- NOTE | 2022-05-30 23:15 | NUR ---
HYGIENE CARE HYGIENE CARE AND FRESH LINENS PROVIDED AT THIS TIME. PATIENT IS REPOSITIONED FOR COMFORT, SHE TOLERATED WELL. BED IS LOCKED, ALARMED, AND AT THE LOWEST LEVEL.
--- NOTE | 2022-05-31 | NUR ---
PATIENT NPO PATIENT IS NOW NPO FOR AM PROCEDURE, PATIENT AND FAMILY AT BEDSIDE UNDERSTAND THAT PATIENT CANNOT HAVE ANY FOOD OR DRINKS AFTER MIDNIGHT; LAST SIPS OF WATER PROVIDED PRIOR TO EDUCATION. BEDSIDE IS CLEARED OF ALL FOODS AND DRINKS; NPO CONE PLACED AT BEDSIDE FOR REMINDER.
[2022-05-31 00:22] VITALS: BP_SYST 120
[2022-05-31] MEDS: POTASSIUM CHLORIDE 20 MEQ in D5/0.45 NS 1,000 ML IV SCH ×3 (00:45→20:00)
--- NOTE | 2022-05-31 03:30 | NUR ---
FAMILY FOUND SLEEPING ON BED A DURING ROUNDS, PATIENT'S DAUGHTER IS FOUND SLEEPING ON BED A, CHARGE NURSE MADE AWARE. FAMILY MEMBER REMINDED RIGHT AWAY THAT PER HOSPITAL POLICY, NO FAMILY MEMBER IS ALLOWED TO SLEEP IN THE ROOMS WITH THE PATIENTS, AND ESPECIALLY NOT IN THE CLEAN BED NOT ASSIGNED TO THE PATIENT. FAMILY MEMBER IS ANGRY, STATING THAT THERE SHOULD HAVE BEEN MORE COMPASSION FOR HER TO ALLOW HER TO SLEEP, BUT IN FACT, SHE WAS ALLOWED TO SLEEP AT BEDSIDE IN A CHAIR NEXT TO THE FAMILY, IT WAS NOT UNTIL SHE SLEPT ON THE BED A THAT STAFF WOKE HER UP. DESPITE SEVERAL EDUCATIONAL EFFORTS, DAUGHTER DONNA CONTINUES TO COMPLAIN THAT IT IS "RIDICULOUS" SHE IS NOT ALLOWED TO SLEEP ON BED A.
--- NOTE | 2022-05-31 04:50 | NUR ---
ROUNDS PATIENT IS SLEEPING, STABLE, NO SIGNS OF RESPIRATORY DISTRESS. NO PAIN NOTED PER FLACC SCALE.
--- NOTE | 2022-05-31 05:38 | NUR ---
ROUNDS/ FAMILY BEHAVIOR DURING ROUNDS, PATIENT ASKED IF SHE EXPERIENCING ANY PAIN, PATIENT STATES "NO I'M NOT" AND WHEN ASKED IF SHE IS COLD, PATIENT STATES "NOPE". PATIENT'S DAUGHTER AT BEDSIDE, DONNA, BECOMES ANGRY AT THIS TIME, AND PULLS NURSE OUTSIDE THE ROOM. SHE STATES THAT THE PATIENT IS IN PAIN AND IS COLD. IT WAS CLARIFIED WITH DONNA, "SO WHEN YOU ASK THE PATIENT IF SHE IS IN PAIN, SHE TELLS YOU YES... BUT WHEN I ASK IF SHE IS IN PAIN, SHE TELLS ME NO?". DONNA SAID YES. PATIENT SHOWS NO PAIN PER FLACC SCALE, NO SIGNS OR SYMPTOMS OF ANY PAIN NOTED, HER SKIN IN WARM TO TOUCH AND DOES NOT FEEL COLD, SHE HAS ON BOTH A SHEET AND A BLANKET. DAUGHTER DONNA WAS INCREASINGLY AGITATED, SHE COMPLAINED ABOUT GETTING KICKED OUT OF BED A IN THAT ROOM, DESPITE SEVERAL EDUCATIONAL EFFORTS, TELLING HER SHE MAY ONLY REST IN THE CHAIRS PROVIDED AT BEDSIDE FOR HER MOM IN BED B. IT WAS EXPLAINED TO HER THAT IT IS NOT THE NURSE'S RULE, BUT THAT IT IS THE HOSPITAL'S POLICY THAT FAMILY CANNOT SLEEP AT BEDSIDE OR ON THE OTHER EMPTY BEDS IN THE ROOM. DONNA GOT MORE AGITATED, AND BLAMED THE NURSE FOR NOT LETTING HER SLEEP IN THE CHAIR, WHICH WAS NOT WHAT HAPPENED. IT WAS EXPLAINED TO DONNA THAT HER NURSE AND CHARGE NURSE DID NOT WAKE HER UNTIL NURSE FOUND HER SLEEPING ON BED A, WHICH DONNA ADMITTED TO KNOW SHE COULD NOT DO. DONNA WOULD NOT LISTEN TO EXPLANATION AND STATED "THIS IS RIDICULOUS AND UNPROFESSIONAL". SHE BELIEVES SHE SHOULD BE THE EXCEPTION TO RULES. NURSE HAD ALREADY EXPLAINED HOSPITAL POLICY BY 2030 PM THAT SHIFT. SINCE DONNA COMPLAINED AFTER THE PREVIOUS PRN DILAUDID WAS GIVEN, SAYING IT WAS "TOO STRONG", BECAUSE HER MOM WAS SLEEPING AND NOT SPEAKING BACK TO HER... NURSE WENT BACK IN THE ROOM TO CLARIFY IF SHE (DONNA) BELIEVES THE PATIENT SHOULD RECEIVE DILAUDID 0.5MG IVP FOR THE PAIN SHE INSISTS HER MOM IS IN, OR IF MD SHOULD BE PAGED FOR SOMETHING MORE MILD IVP SINCE PATIENT IS CURRENTLY NPO FOR AM PROCEDURE. DONNA WAS ANGRY, SAYING "ISN'T THERE ANOTHER NURSE COMING IN AT 7?! LET THE NEXT NURSE GIVE HER PAIN MEDS". CHARGE NURSE MADE AWARE. AT THIS TIME, PATIENT IS STILL NOT SHOWING ANY SIGNS OR SYMPTOMS OF PAIN. CHARGE NURSE MADE AWARE. PATIENT HERSELF IS STABLE, NO SIGNS OF PAIN ASSESSED
[2022-05-31] MEDS: MEROPENEM 500 MG in NS 50 ML IV SCH ×3 (06:44→22:29)
[2022-05-31] MEDS: INSULIN REGULAR, HUMAN 100 UNITS/ML, 3 ML VIAL (humuLIN R) SUBCUT PRN ×2 (06:49→21:29)
--- NOTE | 2022-05-31 06:50 | NUR ---
CLOSING NOTE PATIENT SLEPT WELL DURING THE NIGHT, SHE STATES SHE "FEELS BETTER" THIS MORNING. BOTH DAUGHTERS ARE NOW AT BEDSIDE. BLOOD SUGAR CHECK THIS MORNING REQUIRED INSULIN COVERAGE PER SSI ORDERED BY MD. PATIENT IS STABLE, NO SIGNS OF RESPIRATORY DISTRESS. BED IS LOCKED, ALARMED, AND AT THE LOWEST LEVEL. FALL, SAFETY, ASPIRATION, AND RESPIRATORY PRECAUTIONS HAVE BEEN TAKEN THROUGHOUT THE SHIFT. WILL CONTINUE TO MONITOR UNTIL SHIFT REPORT IS GIVEN AT BEDSIDE TO AM NURSE.
[2022-05-31 08:43] LABS: ALANINE AMINOTRANSFERASE 17 U/L (12-78); POTASSIUM 4.8 mmol/L (3.5-5.1)
[2022-05-31] MEDS: PANTOPRAZOLE SODIUM 40 MG TAB PO SCH (09:00)
[2022-05-31] MEDS: glipiZIDE XL 5 MG TAB ( GLUCOTROL XL) PO SCH ×2 (09:00→21:00)
[2022-05-31] MEDS: MEGESTROL ACETATE 400 MG/10 ML UDC PO SCH ×2 (09:00→21:00)
[2022-05-31 10:14] VITALS: BP_SYST 144
[2022-05-31 11:51] LABS: ALBUMIN 0.8 g/dL (3.4-4.8); ANION GAP 4 (5-15); ASPARTATE AMINOTRANSFERASE 37 U/L (10-37); CALCIUM 8.3 mg/dL (8.4-11.0); CHLORIDE 102 mmol/L (98-107); CREATININE 0.77 mg/dL (0.55-1.30); GLUCOSE 219 mg/dL (70-99); PHOSPHORUS 2.2 mg/dL (2.7-4.5); TOTAL BILIRUBIN 0.3 mg/dL (0.0-1.0); UREA NITROGEN, BLOOD 22 mg/dL (8-21)
[2022-05-31] MEDS ORDERED: fentaNYL CITRATE/PF 100 MCG/2 ML AMP ONE (11:58)
[2022-05-31] MEDS ORDERED: ONDANSETRON HCL 4 MG/2 ML VIAL ONE (11:58)
[2022-05-31] MEDS ORDERED: DIPHENHYDRAMINE INJ 50 MG/ML VIAL ONE (11:59)
[2022-05-31] MEDS ORDERED: MEPERIDINE 100 MG INJ. 100 MG/ML VIAL ONE (11:59)
[2022-05-31] MEDS ORDERED: MIDAZOLAM HCL 5 MG/5 ML VIAL ONE (11:59)
--- NOTE | 2022-05-31 12:05 | NUR ---
PT TAKEN FOR NEPHROSTOMY TUBE PLACEMENT
--- NOTE | 2022-05-31 13:06 | NUR ---
PT RETURNED FROM NEPHROSTOMY TUBE PLACEMENT
--- NOTE | 2022-05-31 13:13 | NUR ---
OR WAS UNABLE TO PLACE NEPHROSTOMY TUBING DUE TO SOME COMPLICATIONS. PT CURRENTLY IN BED SLEEPING COMFORTABLY.
--- NOTE | 2022-05-31 14:30 | NUR ---
Dr. Valladares at bedside talking with both daughters on pt care.
[2022-05-31 15:42] VITALS: BP_SYST 127
[2022-05-31] MEDS ORDERED: LORazepam 1 MG TABLET PO PRN (16:00)
[2022-05-31] MEDS ORDERED: NALOXONE HCL 0.4 MG/ML AMP (NARCAN) IVP PRN (16:00)
--- NOTE | 2022-05-31 16:00 | NUR ---
Nutrition F/U Admitting Diagnosis Pneumonia, Sepsis Reviewed Pertinent Medical/Surgical Hx Medical Record Family Member Patient Medical History Comment: Per EMR: 81y female from [facility] with PMHx T2DM, left BKA, metastatic cancer bladder to lungs, anemia, severe malnutrition, and poor oral intake x 1 month admitted to [facility] for pneumonia and sepsis. Patient noted with stage 2 sacral/coccyx wound. NFPE completed 05/28: Severe muscle wasting noted in temples, clavicle region, shoulders, and interosseous/hands. Moderate-Severe fat loss noted in orbital and buccal regions. Subjective Information: RD visited pt's bedside this afternoon. Daughter present as well. TPN seen infusing per pharmacy order. Daughter reported pt is not eating today d/t pending Sx (possible PCN placement). Daughter reported that pt's UBW is 115#. Bedscale wt was not working properly when RD tried to weigh pt. Per EMR review, pt has been NPO today; O2 mask 10 L O2; negligible PO intakes since last RD visit 05/28; no BM noted since admission (05/27, 4 days ago). Pt is not yet meeting optimal nutritional needs and PPN support remains warranted. Current Diet Order/Nutrition Support: Mechanical Soft, Pureed, Ensure Pudding TID x0 days -- Ensure Pudding not available at [facility] Patient/Significant Other Able To Verbalize Education Provided Not Indicated Pertinent Medications: Reviewed Pertinent Labs: BG 219 H, POC BG 216 H, WBC 27.9 H, Lactic acid 4.2 H, ALP 107 WNL, ALB 0.8 L, TG 72 WNL Height (Feet) 5 feet Height (Inches) 0.00 inches Weight (Pounds) 117 pounds -- stable since 05/28 Patient Weight 53.07 kg Body Mass Index 22.85 kg/m2 Usual Weight 109 lbs %UBW 117 %IBW 117 [place]/Adjusted Body Weight 100#/ 45.45kg Recent Weight Change Yes - 8#/3.6kg wt gain x 20 days (per [facility] from [facility]) Weight Status Appropriate Difficulty With: Chewing Swallowing Food Allergies No Usual Diet At Home Consistent CHO, CECELIA, pureed NTL - per [facility] [place] Skin Integrity Comment: Saqib scale: 12; per EMR review,stage 2 sacral/coccyx wound noted 10/3 Current % PO Negligible <25% Estimated Energy Expenditure (kcals/day) 5967-3943 (30-35 kcal/kg d/t GERIAT, Cancer, PEM) Estimated Protein Required (g/day) 80-106 ( 1.5-2 g/kg d/t GERIAT, Cancer, PEM) Estimated Fluid Required (l/day) 1.5-1.8 (1mL/kcal for maintenance) Problem/Etiology/Signs/Symptoms * Severe protein energy malnutrition r/t metastatic cancer; lack of appetite a/e/b NFPE: severe muscle wasting, moderate-severe fat loss, decreased PO/appetite x 1 month. *Ongoing Expected Outcomes/Goals PO intake provides >85% estimated nutrient needs, nutrition support initiated 1-2 days, nutrition-related labs trending WNL, improvements in skin integrity, BM q 1-3 days Dietitian Recommendations * CCHO, Pureed diet w/ Glucerna TID (ONS yields 660 kcal/day, 30 gm protein/day) * Encourage increase PO intakes * Continue PPN D20%, AA10% at 52.396 ml/hr via peripheral line Provides: 679 kcal/day, 63 gm protein/day, 1258 ml total volume/day, and GIR: 1.7 mg CHO/kg/min Meets: 43% of lower end of estimated caloric needs and 79% of lower end of estimated protein needs Follow Up High Risk: F/U in 2-3 days
--- NOTE | 2022-05-31 16:10 | NUR ---
Dietitian Recommendations * CCHO, Pureed diet w/ Glucerna TID (ONS yields 660 kcal/day, 30 gm protein/day) * Encourage increase PO intakes * Continue PPN D20%, AA10% at 52.396 ml/hr via peripheral line Provides: 679 kcal/day, 63 gm protein/day, 1258 ml total volume/day, and GIR: 1.7 mg CHO/kg/min Meets: 43% of lower end of estimated caloric needs and 79% of lower end of estimated protein needs LP, MS, RD Please refer to Nutrition F/U for details.
[2022-05-31] MEDS: MORPHINE 2 MG/ML INJ. SYRINGE IVP PRN ×2 (16:30→22:25)
--- NOTE | 2022-05-31 18:53 | NUR ---
pt sleeping in bed. pt currently on simple mask 10L. pt doesn't appear to be in pain. pt was medicated with morphine. pt educated on pt condition and plan of care. One of pt daughter at bedside. will endorse care to night rn.
[2022-05-31 20:00] VITALS: BP_SYST 152
[2022-05-31] MEDS: FAT EMULSIONS 250 ML IV SCH (20:47)
[2022-05-31] MEDS: TPN PERIPHERAL IV SCH ×9 (20:58)
[2022-05-31] MEDS: SODIUM ACETATE IV SCH ×9 (20:58)
[2022-05-31] MEDS: NA PHOS IV SCH ×9 (20:58)
[2022-05-31] MEDS: [UNRECOGNIZED DRUG - OTHER] IV SCH ×9 (20:58)
[2022-05-31] MEDS ORDERED: NA PHOS IV SCH ×9 (21:00)
[2022-05-31] MEDS ORDERED: SODIUM ACETATE IV SCH ×9 (21:00)
[2022-05-31] MEDS ORDERED: TPN PERIPHERAL IV SCH ×9 (21:00)
[2022-05-31] MEDS ORDERED: [UNRECOGNIZED DRUG - OTHER] IV SCH ×9 (21:00)
[2022-06-01 00:54] VITALS: BP_SYST 110
[2022-06-01] MEDS: MORPHINE 2 MG/ML INJ. SYRINGE IVP PRN ×3 (02:59→21:34)
[2022-06-01] MEDS: MEROPENEM 500 MG in NS 50 ML IV SCH ×3 (05:46→22:19)
[2022-06-01] MEDS: INSULIN REGULAR, HUMAN 100 UNITS/ML, 3 ML VIAL (humuLIN R) SUBCUT PRN ×4 (06:00→21:47)
[2022-06-01] MEDS: POTASSIUM CHLORIDE 20 MEQ in D5/0.45 NS 1,000 ML IV SCH ×3 (06:06→22:18)
[2022-06-01 07:04] LABS: BASOPHILS # (AUTO) 0.1 K/uL (0.0-0.2); BASOPHILS % (AUTO) 0.2 % (0.0-2.0); EOSINOPHILS # (AUTO) 0.1 K/uL (0.0-0.4); EOSINOPHILS % (AUTO) 0.3 % (0.0-4.0); HEMATOCRIT 29.7 % (36-48); HEMOGLOBIN 9.8 g/dL (12.0-16.0); LYMPHOCYTES # (AUTO) 0.6 K/uL (1.0-5.5); LYMPHOCYTES % (AUTO) 1.8 % (20.5-51.5); MEAN CORPUSCULAR HEMOGLOBIN 30 pg (27-31); MEAN CORPUSCULAR HGB CONC 33 % (32-36); MEAN CORPUSCULAR VOLUME 91 fL (79.0-98.0); MONOCYTES # (AUTO) 0.4 K/uL (0.0-1.0); MONOCYTES % (AUTO) 1.4 % (1.7-9.3); NEUTROPHILS # (AUTO) 30.4 K/uL (1.8-7.7); NEUTROPHILS % (AUTO) 96.3 % (40.0-70.0); PLATELET COUNT (AUTO) 306 K/uL (130-430); RED BLOOD CELL COUNT(AUTO) 3.26 MIL/uL (4.2-6.2); RED CELL DISTRIBUTION WIDTH 14.2 % (9.0-15.0)
--- NOTE | 2022-06-01 07:57 | NUR ---
Patient stable; resting comfortably in bed with daughterAlexandria at bedside.
[2022-06-01 08:00] VITALS: BP_SYST 136
--- NOTE | 2022-06-01 08:15 | NUR ---
Received call from Isaura (lab) regarding abnormal lab result: WBC 31.6. Will notify doctor.
[2022-06-01 08:23] LABS: ALANINE AMINOTRANSFERASE 15 U/L (12-78); ALBUMIN 0.9 g/dL (3.4-4.8); ANION GAP 6 (5-15); ASPARTATE AMINOTRANSFERASE 23 U/L (10-37); CALCIUM 8.6 mg/dL (8.4-11.0); CHLORIDE 99 mmol/L (98-107); CREATININE 0.91 mg/dL (0.55-1.30); GLUCOSE 379 mg/dL (70-99); POTASSIUM 4.7 mmol/L (3.5-5.1); TOTAL BILIRUBIN 0.4 mg/dL (0.0-1.0); UREA NITROGEN, BLOOD 24 mg/dL (8-21)
[2022-06-01 08:45] LABS: WHITE BLOOD COUNT (AUTO) 31.6 K/uL (4.8-10.8)
--- NOTE | 2022-06-01 10:05 | NUR ---
Patient repositioned; stable with daughters at bedside.
--- NOTE | 2022-06-01 10:22 | NUR ---
Dr. Becerril speaking with patient's daughters outside room.
--- NOTE | 2022-06-01 10:40 | NUR ---
Again, Dr. Becerril speaking with patient's daughters outside room; this time regarding DNR status.
[2022-06-01] MEDS ORDERED: ONDANSETRON HCL 4 MG/2 ML VIAL IVP PRN (10:45)
[2022-06-01] MEDS ORDERED: PEG 400/HYPROMELLOSE/GLYCERIN 15 ML DROPS OP PRN (10:45)
[2022-06-01] MEDS ORDERED: MORPHINE 4 MG INJ. 4 MG/ML VIAL IVP PRN (10:45)
[2022-06-01] MEDS ORDERED: NALOXONE HCL 0.4 MG/ML AMP (NARCAN) IVP PRN (10:45)
[2022-06-01] MEDS ORDERED: LORazepam 1 MG TABLET PO PRN (10:45)
[2022-06-01 11:28] VITALS: BP_SYST 126
--- NOTE | 2022-06-01 11:58 | NUR ---
Checked blood sugar:298 mg/dl - will cover per sliding scale. Patient stable with daughter, Alexandria at bedside.
--- NOTE | 2022-06-01 14:12 | NUR ---
Scheduled IV abx given per order. Patient stable with daughterDorota at bedside.
--- NOTE | 2022-06-01 14:30 | NUR ---
Patient repositioned; stable at this time.
[2022-06-01 15:26] VITALS: BP_SYST 144
--- NOTE | 2022-06-01 18:08 | NUR ---
Checked blood sugar: 271 mg/dl - will cover per sliding scale. Addendum: 06/01/22 at 1844 by Marguerite Camp RN Covered per sliding scale: 6 units.
--- NOTE | 2022-06-01 18:15 | NUR ---
Notes Blood glucose 271 mg/ dl. Administered 6 units of regular insulin.
--- NOTE | 2022-06-01 18:40 | NUR ---
Patient resting in bed with eyes closed and Dorota pérez at bedside. Patient stable throughout shift.
[2022-06-01 19:00] VITALS: BP_SYST 152
--- NOTE | 2022-06-01 19:15 | NUR ---
change of shift.pt.presents isolation status;contact;mrsa;.pt.presents quiescent affect;calm,resting.loc;confused.lethargic. pt.presents mid-line;location;lt.bicept.ivf,tpn/lipids,infusing.pt.presents abdullahi cath.pt.presents lt.bka.respiratory status pt. presents o2 therapy via mask;o2-sat%=96%.rate;10l/min.call light/telephone w/in access of the pt.
[2022-06-01 20:00] VITALS: BP_SYST 152
--- NOTE | 2022-06-01 20:00 | NUR ---
pt.assessed.v/s assessed values wnl.o2-sat%=96%.iv access intact.per flacc pain mgx pt.absent facial grimaces/ body posturing.pt.assessed for cleanliness.pt.repositioned.call light/telephone placed w/in access of the pt.
--- NOTE | 2022-06-01 20:30 | NUR ---
blood glucose assessed value:178mg/dl.
[2022-06-01] MEDS ORDERED: TPN PERIPHERAL IV SCH ×9 (21:00)
[2022-06-01] MEDS ORDERED: NA PHOS IV SCH ×9 (21:00)
[2022-06-01] MEDS ORDERED: [UNRECOGNIZED DRUG - OTHER] IV SCH ×9 (21:00)
[2022-06-01] MEDS ORDERED: SODIUM ACETATE IV SCH ×9 (21:00)
--- NOTE | 2022-06-01 21:00 | NUR ---
2100p medications administered.ivf,tpn/lipids,abx;merrem.mid-line assessed for placement;blood return manifested.insulin: regular;4-u administered per sliding scale.call light/telephone placed w/in access of the pt.
--- NOTE | 2022-06-01 21:30 | NUR ---
pain medication:morphine ivp administered per family;dtr's requests.
--- NOTE | 2022-06-01 22:00 | NUR ---
pt.assessed.pt.quiescent.02-sat%=96%.iv access,abdullahi cath intact.per flacc pain mgx pt.absent facial grimaces/ body posturing.pt.assessed for cleanliness.pt.repositioned.call light/telephone placed w/in access of the pt.
[2022-06-01] MEDS: FAT EMULSIONS 250 ML IV SCH (22:14)
--- NOTE | 2022-06-02 | NUR ---
pt.assessed.v/s assessed values wnl.o2-sat%=96%.iv access,abdullahi cath intact.per flacc pain mgx pt.absent facial grimaces/ body posturing.pt.assessed for cleanliness.pt.repositioned.call light/telephone placed w/in access of the pt.
--- NOTE | 2022-06-02 02:00 | NUR ---
pt.assessed.iv access,abdullahi cath intact.per flacc pain mgx pt.absent facial grimaces/body posturing.pt.assessed for cleanliness. pt.repositioned.o2-sat%=96%.call light/telephone placed w/in access of the pt.
--- NOTE | 2022-06-02 04:00 | NUR ---
pt.assessed.mid-line intact;ivf,tpn/lipids infusing.abdullahi cath intact.per flacc pain mgx pt.absent facial grimaces/body posturing.pt.assessed for cleanliness.pt.repositioned.call light/telephone placed w/in access of the pt.
[2022-06-02 04:31] VITALS: BP_SYST 117
--- NOTE | 2022-06-02 06:23 | NUR ---
pt.assessed.o2-sat%=96%.blood glucose assessed.mid-line,abdullahi cath intact.per flacc pain mgx pt.absent facial grimaces/ body posturing.pt.assessed for cleanliness.pt.repositioned.call light/telephone placed w/in access of the pt.
[2022-06-02] MEDS: MEROPENEM 500 MG in NS 50 ML IV SCH ×3 (06:40→23:00)
[2022-06-02] MEDS: INSULIN REGULAR, HUMAN 100 UNITS/ML, 3 ML VIAL (humuLIN R) SUBCUT PRN ×3 (06:47→21:30)
[2022-06-02 07:23] LABS: ALANINE AMINOTRANSFERASE 12 U/L (12-78); ALBUMIN 0.6 g/dL (3.4-4.8); ANION GAP 7 (5-15); ASPARTATE AMINOTRANSFERASE 24 U/L (10-37); CALCIUM 8.1 mg/dL (8.4-11.0); CHLORIDE 102 mmol/L (98-107); CREATININE 0.94 mg/dL (0.55-1.30); GLUCOSE 166 mg/dL (70-99); PHOSPHORUS 3.2 mg/dL (2.7-4.5); POTASSIUM 4.1 mmol/L (3.5-5.1); TOTAL BILIRUBIN 0.1 mg/dL (0.0-1.0); UREA NITROGEN, BLOOD 30 mg/dL (8-21)
[2022-06-02 08:11] VITALS: BP_SYST 131
[2022-06-02 11:24] VITALS: BP_SYST 136
--- NOTE | 2022-06-02 11:53 | NUR ---
DR THOMAS WAS HERE AND SEEN PT, MADE AWARE THAT PT WAS PLACED ON O2 10-12 LIT PER SIMPLE FACE MASK BY NIGHT RN DUE TO PT DESATS ON ROOM AIR. SAID PT WAS ON FACE MASK EVEN YESTERDAY. PT'S FACE MASK IS OFF BECAUSE PT TAKES IT OFF. AT THIS TIME. O2 SAT WAS 87-88% ON ROOM AIR. PT WAS PLACE BACK ON FM AND O2 SAT WENT BACK UP TO 94%.
[2022-06-02] MEDS: POTASSIUM CHLORIDE 20 MEQ in D5/0.45 NS 1,000 ML IV SCH (13:50)
--- NOTE | 2022-06-02 14:16 | NUR ---
pt's daughter at bedside, requested to see the pt's wound, showed her the wound on the sacral and below left knee wound.
[2022-06-02 15:26] VITALS: BP_SYST 126
[2022-06-02 20:00] VITALS: BP_SYST 130
[2022-06-02] MEDS ORDERED: TPN PERIPHERAL IV SCH ×9 (21:00)
[2022-06-02] MEDS ORDERED: SODIUM ACETATE IV SCH ×9 (21:00)
[2022-06-02] MEDS ORDERED: [UNRECOGNIZED DRUG - OTHER] IV SCH ×9 (21:00)
[2022-06-02] MEDS ORDERED: NA PHOS IV SCH ×9 (21:00)
[2022-06-02] MEDS: FAT EMULSIONS 250 ML IV SCH (21:27)
[2022-06-03] VITALS: BP_SYST 146
--- NOTE | 2022-06-03 01:45 | NUR ---
NURSE NOTES Pt daughters at bedside. Daughter called concerned about mother's discomfort/pain d/t constant hands swaying in air, facial grimace, and not sleeping. Pt on 10L simple mask but keeps removing but will tolerate it half way on with O2 sat 92% - 94%. Assessment prior to morphine 2mg: HR 99, RR 36, O2 94%. Assessment 30 minutes of morphine 2mg: HR 84, RR 24, O2 95%. Pt is asleep and daughter is at bedside.
--- NOTE | 2022-06-03 02:00 | NUR ---
PT ROUNDs Checking status of pt and IV alarms. Pt is wearing simple mask and receiving 10L, O2 sat is 98%. Pt is resting and shows no sign of discomfort or pain. Daughter's are at bedside and agreed to continue with IV fluids and antibiotics but not the TPN or lipids. Daughters feel dying process has begun and want to make sure she is comfortable and do not want interventions that will cause her stress.
[2022-06-03] MEDS: MORPHINE 2 MG/ML INJ. SYRINGE IVP PRN (02:13)
--- NOTE | 2022-06-03 07:00 | NUR ---
received bedside report. pt in bed resting all needs meet at this time. family at bedside. all needs meet at this time.
[2022-06-03 07:05] LABS: ALANINE AMINOTRANSFERASE 25 U/L (12-78); ALBUMIN 0.6 g/dL (3.4-4.8); ANION GAP 5 (5-15); ASPARTATE AMINOTRANSFERASE 44 U/L (10-37); CALCIUM 8.4 mg/dL (8.4-11.0); CHLORIDE 103 mmol/L (98-107); CREATININE 0.87 mg/dL (0.55-1.30); GLUCOSE 186 mg/dL (70-99); PHOSPHORUS 3.3 mg/dL (2.7-4.5); POTASSIUM 4.1 mmol/L (3.5-5.1); TOTAL BILIRUBIN 0.3 mg/dL (0.0-1.0); UREA NITROGEN, BLOOD 32 mg/dL (8-21)
[2022-06-03 07:06] LABS: BASOPHILS # (AUTO) 0.1 K/uL (0.0-0.2); BASOPHILS % (AUTO) 0.3 % (0.0-2.0); EOSINOPHILS # (AUTO) 2.8 K/uL (0.0-0.4); EOSINOPHILS % (AUTO) 10.8 % (0.0-4.0); HEMATOCRIT 24.4 % (36-48); HEMOGLOBIN 8.2 g/dL (12.0-16.0); LYMPHOCYTES # (AUTO) 0.8 K/uL (1.0-5.5); LYMPHOCYTES % (AUTO) 3.1 % (20.5-51.5); MEAN CORPUSCULAR HEMOGLOBIN 30 pg (27-31); MEAN CORPUSCULAR HGB CONC 34 % (32-36); MEAN CORPUSCULAR VOLUME 90 fL (79.0-98.0); MONOCYTES # (AUTO) 0.9 K/uL (0.0-1.0); MONOCYTES % (AUTO) 3.5 % (1.7-9.3); NEUTROPHILS # (AUTO) 21.5 K/uL (1.8-7.7); NEUTROPHILS % (AUTO) 82.3 % (40.0-70.0); PLATELET COUNT (AUTO) 307 K/uL (130-430); RED BLOOD CELL COUNT(AUTO) 2.73 MIL/uL (4.2-6.2); WHITE BLOOD COUNT (AUTO) 26.1 K/uL (4.8-10.8)
--- NOTE | 2022-06-03 07:47 | NUR ---
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 Patient noted with stage 2 sacral/coccyx wound. NFPE completed 05/28: Severe muscle wasting noted in temples, clavicle region, shoulders, and interosseous/hands. Moderate-Severe fat loss noted in orbital and buccal regions. Subjective Information: TPN continues, also on a CCHO, pureed diet w/ Glucerna TID although the patient is not eating. Per MD note, IR placement of nephrostomy was not successful due to complications, plan is for more comfort-centered care due to poor prognosis and expected rapid decline. Patient remains on O2 mask 10 L O2; negligible PO intakes since last RD visit 05/28; no BM noted since admission (05/27, 4 days ago). Pt is not yet meeting optimal nutritional needs and PPN support remains warranted. Current Diet Order/Nutrition Support: Mechanical Soft, Pureed, Ensure Pudding TID x0 days -- Ensure Pudding not available at [facility] Patient/Significant Other Able To Verbalize Education Provided Not Indicated Pertinent Medications: Reviewed Pertinent Labs: BG 219 H, POC BG 216 H, WBC 27.9 H, Lactic acid 4.2 H, ALP 107 WNL, ALB 0.8 L, TG 72 WNL Height (Feet) 5 feet Height (Inches) 0.00 inches Weight (Pounds) 117 pounds -- stable since 05/28 Patient Weight 53.07 kg Body Mass Index 22.85 kg/m2 Usual Weight 109 lbs %UBW 117 %IBW 117 [place]/Adjusted Body Weight 100#/ 45.45kg Recent Weight Change Yes - 8#/3.6kg wt gain x 20 days (per Juani from [facility]) Weight Status Appropriate Difficulty With: Chewing Swallowing Food Allergies No Usual Diet At Home Consistent CHO, CECELIA, pureed NTL - per Juani [place] Nidia Skin Integrity Comment: Saqib scale: 12; per EMR review,stage 2 sacral/coccyx wound noted 05/28 Current % PO Negligible <25% Estimated Energy Expenditure (kcals/day) 0274-2225 (30-35 kcal/kg d/t GERIAT, Cancer, PEM) Estimated Protein Required (g/day) 80-106 ( 1.5-2 g/kg d/t GERIAT, Cancer, PEM) Estimated Fluid Required (l/day) 1.5-1.8 (1mL/kcal for maintenance) Problem/Etiology/Signs/Symptoms * Severe protein energy malnutrition r/t metastatic cancer; lack of appetite a/e/b NFPE: severe muscle wasting, moderate-severe fat loss, decreased PO/appetite x 1 month. *Ongoing Expected Outcomes/Goals PO intake provides >85% estimated nutrient needs, nutrition support initiated 1-2 days, nutrition-related labs trending WNL, improvements in skin integrity, BM q 1-3 days Dietitian Recommendations * CCHO, Pureed diet w/ Glucerna TID (ONS yields 660 kcal/day, 30 gm protein/day) * Encourage increase PO intakes * Continue PPN D20%, AA10% at 52.396 ml/hr via peripheral line Provides: 679 kcal/day, 63 gm protein/day, 1258 ml total volume/day, and GIR: 1.7 mg CHO/kg/min Meets: 43% of lower end of estimated caloric needs and 79% of lower end of estimated protein needs Follow Up High Risk: F/U in 2-3 days
--- NOTE | 2022-06-03 07:51 | NUR ---
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 Patient noted with stage 2 sacral/coccyx wound. NFPE completed 05/28: Severe muscle wasting noted in temples, clavicle region, shoulders, and interosseous/hands. Moderate-Severe fat loss noted in orbital and buccal regions. Subjective Information: PPN continues, also on a CCHO, pureed diet + Glucerna TID although the patient is not eating much. Remains on O2 mask although removes mask per notes; still no BM noted since admission (05/27), +bowel sounds, abdomen soft/nondistended per documentation coordinator. Pt is not yet meeting optimal nutritional needs and PPN support remains warranted. Current Diet Order/Nutrition Support: CCHO, pureed diet + Glucerna TID Pertinent Medications: Regular ISS Pertinent Labs: BG 186 H, POC BG range: 140-209 H, WBC 26.1 H, Na 135 L Height (Feet) 5 feet Height (Inches) 0.00 inches Weight (Pounds) 117 pounds -- stable since 05/28 Patient Weight 53.07 kg Adjusted Body Mass Index for Pratibha OLIVERA 24.1 kg/m2 Usual Weight 115 lbs per daughter %UBW 102 %IBW 122 [place]/Adjusted Body Weight for Pratibha OLIVERA 96#/ 43.6kg Recent Weight Change Yes - 8#/3.6kg wt gain x 20 days (per [facility] from [facility]) Weight Status Appropriate Difficulty With: Chewing Swallowing Food Allergies No Usual Diet At Home Consistent CHO, CECELIA, pureed NTL - per Juani, [place] Skin Integrity Comment: Saqib scale: 10; per EMR review,stage 2 sacral/coccyx wound noted 05/28 (05/28) route sales specialist note: 1) coccygeal area: unstageable pressure ulcer with possible DTI; 2) R lateral malleolus: scar tissue with blanchable redness; 3) R lateral heel: blanchable redness Current % PO Negligible <25% Estimated Energy Expenditure (kcals/day) 2496-2216 (30-35 kcal/kg d/t GERIAT, Cancer, PEM) Estimated Protein Required (g/day) 80-106 ( 1.5-2 g/kg d/t GERIAT, Cancer, PEM) Estimated Fluid Required (l/day) 1.5-1.8 (1mL/kcal for maintenance) Problem/Etiology/Signs/Symptoms * Severe protein energy malnutrition r/t metastatic cancer; lack of appetite a/e/b NFPE: severe muscle wasting, moderate-severe fat loss, decreased PO/appetite x 1 month. *Ongoing Expected Outcomes/Goals PO intake provides >85% estimated nutrient needs, nutrition support initiated 1-2 days, nutrition-related labs trending WNL, improvements in skin integrity, BM q 1-3 days Dietitian Recommendations * CCHO, Pureed diet w/ Glucerna TID (ONS yields 660 kcal/day, 30 gm protein/day) * Encourage PO intake * Continue PPN D20%, AA10% at 50 ml/hr + 250 ml 20% IL via peripheral line Provides: 1179 kcal/day, 63 gm protein/day; GIR: 1.7 mg CHO/kg/min Meets: 74% of lower end of estimated caloric needs and 79% of lower end of estimated protein needs * Consider PRN bowel regimen, no BM documented this admission Follow Up High Risk: F/U in 2-3 days
--- NOTE | 2022-06-03 08:09 | NUR ---
Dietitian Recommendations * CCHO, Pureed diet w/ Glucerna TID (ONS yields 660 kcal/day, 30 gm protein/day) * Encourage PO intake * Continue PPN D20%, AA10% at 50 ml/hr + 250 ml 20% IL via peripheral line Provides: 1179 kcal/day, 63 gm protein/day; GIR: 1.7 mg CHO/kg/min Meets: 74% of lower end of estimated caloric needs and 79% of lower end of estimated protein needs * Consider PRN bowel regimen, no BM documented this admission Please refer to nutrition follow up for details. PS, RD
[2022-06-03] MEDS: MEROPENEM 500 MG in NS 50 ML IV SCH ×3 (08:22→22:00)
[2022-06-03] MEDS: POTASSIUM CHLORIDE 20 MEQ in D5/0.45 NS 1,000 ML IV SCH (08:25)
[2022-06-03 09:34] VITALS: BP_SYST 146
--- NOTE | 2022-06-03 10:26 | NUR ---
ATTENDING MD FINANCIAL F[employer]ATIONS ASSOCIATE DR THOMAS WAS CALLED RE: ANTIBIOTIC ORDER IS . SPOKE TO
[2022-06-03 11:26] VITALS: BP_SYST 109
--- NOTE | 2022-06-03 12:00 | NUR ---
md at bedside speaking with pt family about plan of care
--- NOTE | 2022-06-03 13:55 | NUR ---
Dr Becerril, attending Md education administrator was called re: IV jasper, Pt is agitated. Spoke to Sierra.
--- NOTE | 2022-06-03 15:00 | NUR ---
All 3 dressings changed on pt. pt tolerated well. All needs meet at this time
[2022-06-03 15:47] VITALS: BP_SYST 159
[2022-06-03] MEDS: LORazepam 2 MG/ML VIAL IVP PRN (16:02)
[2022-06-03] MEDS: INSULIN REGULAR, HUMAN 100 UNITS/ML, 3 ML VIAL (humuLIN R) SUBCUT PRN (17:55)
--- NOTE | 2022-06-03 19:00 | NUR ---
pt in bed sleeping comfortably. rr even and unlabored on 10L simple mask. pt does not appear to be in pain at this time
[2022-06-03] MEDS: SODIUM CHLORIDE IV SCH ×10 (21:00)
[2022-06-03] MEDS: [UNRECOGNIZED DRUG - OTHER] IV SCH ×10 (21:00)
[2022-06-03] MEDS: TPN PERIPHERAL IV SCH ×10 (21:00)
[2022-06-03] MEDS: SODIUM ACETATE IV SCH ×10 (21:00)
[2022-06-03] MEDS: FAT EMULSIONS 250 ML IV SCH (21:00)
--- NOTE | 2022-06-03 22:15 | NUR ---
COMFORT MEASURES PRIORITY Pt daughter refused medications, accu checks, TPN, Lipids, repositioning and patient care d/t pt resting comfortably w/o agitation. Pt to be discharged to begin hospice care.
[2022-06-04] MEDS: POTASSIUM CHLORIDE 20 MEQ in D5/0.45 NS 1,000 ML IV SCH ×2 (02:54→18:16)
[2022-06-04] MEDS: MEROPENEM 500 MG in NS 50 ML IV SCH ×3 (06:00→20:57)
[2022-06-04] MEDS: LORazepam 2 MG/ML VIAL IVP PRN ×2 (12:28→20:30)
--- NOTE | 2022-06-04 13:22 | NUR ---
Store Loss Prevention Manager BAKERY HELPER spoke to Sherly at [facility], to inquire about Hospice services. Sherly did not know pt. was back in the hospital. Sherly explained to this BAKERY HELPER that the pt. left [facility] last time and wanted to go on hospice. Pt. was going to to go to [facility], but they did not have beds at the time so pt. was going back to [facility] until a bed opened up at . Once this happened. CB convinced family to have pt go under SNF. Sherly agreed to call the pts. daughter, Dorota to ask what the pt. wanted to do. Pt. will go to on hospice services. BAKERY HELPER send [facility] via fax the packet, fax, . BAKERY HELPER called Sherly to ask if she needed anything else. Sherly stated she is just waiting to hear back from and that they are reviewing the paperwork. BAKERY HELPER thanked Sherly who will call Ayesha if they need anything as BAKERY HELPER will be leaving for the day.
[2022-06-04 13:51] VITALS: BP_SYST 129
--- NOTE | 2022-06-04 18:30 | NUR ---
Miss Darden has been assessed as indicated. Her daughters Dorota and Alexandria have been at the bedside the duration of this shift. TPN was declined last night as were lipids. They did agree with antibiotics as well as blood sugar checks. Staff was not permitted to reposition Miss Darden overnight. However her daughters were in agreement with this after Ativan had been provided. Ativan was given for a elevate respiratory rate x1 this shift. Miss Darden did rest quietly and would respond when her daughters called her name and held her hand. initially the family declined oxygen. ( she had been on a simple max with 10L) her pulse ox was 75% on room air. Later this shift they did request that it be replaced. This was done and pulse ox increased to 95%. Miss Darden made no attempts to remove it so far. at this time Miss Darden is resting quietly with no s/s of distress or discomfort
--- NOTE | 2022-06-04 19:15 | NUR ---
Handoff has been given to Danette
[2022-06-04 20:00] VITALS: BP_SYST 136
[2022-06-04] MEDS: TPN PERIPHERAL IV SCH ×10 (20:25)
[2022-06-04] MEDS: SODIUM ACETATE IV SCH ×10 (20:25)
[2022-06-04] MEDS: SODIUM CHLORIDE IV SCH ×10 (20:25)
[2022-06-04] MEDS: [UNRECOGNIZED DRUG - OTHER] IV SCH ×10 (20:25)
[2022-06-04] MEDS: FAT EMULSIONS 250 ML IV SCH (20:28)
[2022-06-04] MEDS: MORPHINE 2 MG/ML INJ. SYRINGE IVP PRN (22:43)
[2022-06-05] VITALS: BP_SYST 119
[2022-06-05] MEDS: MEROPENEM 500 MG in NS 50 ML IV SCH (06:13)
[2022-06-05] MEDS: INSULIN REGULAR, HUMAN 100 UNITS/ML, 3 ML VIAL (humuLIN R) SUBCUT PRN (06:23)
[2022-06-05 08:00] VITALS: BP_SYST 135
--- NOTE | 2022-06-05 08:54 | NUR ---
TELEPHONE LINES REPAIRER/HOSPICE UPDATE [facility] Ayesha contacted [facility] with [facility] to obtain update. According to [facility], family has completed consents with hospice and [facility]. Patient is expected to be transported today, [facility] will provide pickup time when confirmed. RUFINA will continue to be available as needed Addendum: 06/05/22 at 1222 by Ayesha LINDQUIST RUFINA Hodge received update from [facility] @[facility] providing the following transport update; [place] [facility] 1230-130pm
[2022-06-05] MEDS: POTASSIUM CHLORIDE 20 MEQ in D5/0.45 NS 1,000 ML IV SCH (09:18)
[2022-06-05 11:28] VITALS: BP_SYST 124
[2022-06-05 12:11] VITALS: BP_SYST 135
[2022-06-05 12:22] VITALS: BP_SYST 135
--- NOTE | 2022-06-05 13:30 | NUR ---
Miss Darden has been DC to [facility]. She will be followed by [facility]. Her PICC and Rush remained in place. TPN was DC. report was given to Rae and clarification of TPN and PICC orders was given to Tami [phone]. Miss Darden's daughter Dorota were at the bedside at the time of DC. Miss Darden had no s/s of distress or discomfort at the time of DC. and her family was compliant with the plan to DC to [facility] and they approved of the hospice service. She was transferred by [facility]. unit 1504 under the care of Estrada Allen
--- NOTE | 2022-06-07 15:36 | NUR ---
Dispo code 03
== END 2022-06-05 13:30 | disposition hospice, inpatient (51) | DRG 871 ==
LOC: SED 10:43 → STU 14:57
PROVIDERS: ADMIT Family Medicine; ATTEND Family Medicine
PROC: 02HV33Z Insertion of Infusion Device into Superior Vena Cava, Percutaneous Approach (ICD-10-PCS; principal; 2022-05-28)
DX: A41.9 Sepsis, unspecified organism (principal); E43 Unspecified severe protein-calorie malnutrition; J18.9 Pneumonia, unspecified organism; R65.21 Severe sepsis with septic shock; N13.6 Pyonephrosis; Z20.822 Contact with and (suspected) exposure to COVID-19; E11.9 Type 2 diabetes mellitus without complications; D64.9 Anemia, unspecified; Z85.51 Personal history of malignant neoplasm of bladder; Z68.22 Body mass index [BMI] 22.0-22.9, adult; Z79.4 Long term (current) use of insulin; Z85.118 Personal history of other malignant neoplasm of bronchus and lung
CPT/HCPCS: 36415; 71045; 74150-TC; 76376; 80053; 81000; 82962; 83605; 83735; 83874; 84100; 84478; 84484; 85007; 85025; 85027; 85610-TC; 85730-TC; 87040; 87081; 87086; 87186-TC; 93005; 96374; 96375; 99291; 99292; G0378; J1170; J1200; J1815; J2060; J2175; J2185; J2250; J2270; J2405; J2543; J3010; J3370; J3475; J3480; J7131